=== PATIENT | female | born 1955 | race Caucasian/White ===

== ENCOUNTER 2020-06-04 11:49 | Outpatient (REF) | payer MEDICARE, SELFPAY ==
[2020-06-04 13:00] LABS: Alanine Aminotransferase 12 U/L (0-31); Alkaline Phosphatase 75 U/L (39-117); Anion Gap 11 (12-20); Aspartate Amino Transferase 15 U/L (5-31); Bilirubin Total 0.6 mg/dL (0.0-1.0); Blood Urea Nitrogen 13 mg/dL (9-16); Calcium 8.6 mg/dL (8.4-10.2); Carbon Dioxide 27 mmol/L (22-29); Chloride 106 mmol/L (96-108); Cholesterol 199 mg/dL; Estimated Glomerular Filt Rate > 60; Glucose Fasting 90 mg/dL (60-99); HDL Cholesterol 61 mg/dL; LDL Cholesterol Calculated 123 mg/dl; Potassium 3.8 mmol/l (3.3-5.1); Sodium 140 mmol/L (135-145); Total Protein 6.6 g/dL (6.5-8.0); Triglycerides 78 mg/dL
== END 2020-06-04 11:50 | disposition home or self-care (01) ==
LOC: HO.LAB 11:49
PROVIDERS: Visit Provider Internal Medicine
DX: E11.9 Type 2 diabetes mellitus without complications (principal)
CPT/HCPCS: 80053; 80061

== ENCOUNTER 2021-01-21 14:58 | Outpatient (REF) | payer MEDICARE, SELFPAY ==
--- NOTE | ~2021-01-21 | MM_ITS ---
EXAMINATION: MM SCREENING DIGITAL BREAST TOMOSYNTHESIS, BILATERAL CLINICAL INFORMATION: Screening. Asymptomatic. The lifetime risk of breast cancer based on the Tyrer-Cuzick Model is 3%. COMPARISON: Mammography: 08/16/2019, 08/10/2018, 09/12/2014 TECHNIQUE: Digital breast tomosynthesis is performed in both the craniocaudal and mediolateral oblique views along with computer-aided detection (CAD). Synthesized 2D images are generated from the tomosynthesis. FINDINGS: There are scattered areas of fibroglandular density (ACR BI-RADS breast composition Category b). Breast tissue composition borders on predominantly fatty. There are no significant masses, abnormal calcifications, or other abnormalities. There is no developing density. The axilla and skin contours are unremarkable. No significant changes. MM/MM tomosynthesis screening BI IMPRESSION: No mammographic evidence of malignancy. ASSESSMENT: BI-RADS 1: Negative RECOMMENDATION: Routine annual mammography screening. This patient's information was entered into a reminder system with a target due date for their next mammogram.
== END 2021-01-21 14:59 | disposition home or self-care (01) ==
LOC: HO.MAMMO 14:58
PROVIDERS: PCP Internal Medicine; Visit Provider Internal Medicine
DX: Z12.31 Encounter for screening mammogram for malignant neoplasm of breast (principal)
CPT/HCPCS: 77063; 77067

== ENCOUNTER 2021-01-27 10:45 | Outpatient (REF) | payer MEDICARE, SELFPAY | END 2021-01-27 10:46 | disposition home or self-care (01) | LOC: HO.LAB 10:45 | PROVIDERS: Visit Provider Internal Medicine | DX: Z20.822 Contact with and (suspected) exposure to COVID-19 (principal) | CPT/HCPCS: C9803; U0003; U0005 ==

== ENCOUNTER 2021-06-26 10:26 | Outpatient (REF) | payer MEDICARE, SELFPAY ==
[2021-06-26 10:56] LABS: COVID-19 Test Negative (Negative)
== END 2021-06-26 10:27 | disposition home or self-care (01) ==
LOC: HO.LAB 10:26
PROVIDERS: Visit Provider Internal Medicine
DX: Z20.822 Contact with and (suspected) exposure to COVID-19 (principal)
CPT/HCPCS: 36415; 87635; C9803

== ENCOUNTER 2021-07-02 11:57 | Outpatient (REF) | payer MEDICARE, SELFPAY | END 2021-07-02 11:58 | disposition home or self-care (01) | LOC: HO.LAB 11:57 | PROVIDERS: Visit Provider Internal Medicine | DX: Z20.822 Contact with and (suspected) exposure to COVID-19 (principal) | CPT/HCPCS: C9803; U0003; U0005 ==

== ENCOUNTER 2021-12-26 10:09 | Outpatient (REF) | payer MEDICARE, SELFPAY ==
--- NOTE | ~2021-12-26 | XR_ITS ---
EXAMINATION: XR SHOULDER, LEFT CLINICAL INFORMATION: Pain COMPARISON: None TECHNIQUE: AP external rotation, Grashey, scapular Y, and axillary views of the left shoulder. FINDINGS: The glenohumeral and AC joint space is maintained normal. There is a lateral acromial enthesophyte. No soft tissue calcification or swelling seen. No acute fracture, lytic or sclerotic process seen. XR/XR shoulder LT min 2V IMPRESSION: Minimal lateral acromial enthesophyte. Otherwise no acute fracture, dislocation or soft tissue calcification.
[2021-12-26 10:25] LABS: MANUAL DIFF FLAG NO
[2021-12-26 12:16] LABS: Basophils Absolute Auto 0.1 X10*3/uL (0.0-0.2); Basophils Percent Auto 0.9 % (0-2); Eosinophils Absolute Auto 0.1 X10*3/uL (0.0-0.4); Eosinophils Percent Auto 2.5 % (0-4); Hematocrit 38.8 % (37.0-47.0); Hemoglobin 13.1 g/dl (12.0-16.0); Imm Gran Abs Auto 0.02 X10*3/uL (0.00-0.03); Imm Gran Pct Auto 0.4 % (0.0-0.4); Lymphocytes Absolute Auto 1.7 X10*3/uL (1.2-4.9); Lymphocytes Percent Auto 29.9 % (20-40); Mean Corpuscular HGB Conc 33.8 g/dl (31.0-35.0); Mean Corpuscular Hemoglobin 29.5 pg (27.0-33.0); Mean Corpuscular Volume 87.4 fL (80.0-98.0); Mean Platelet Volume 10.4 fL (9.4-12.3); Monocytes Absolute Auto 0.5 X10*3/uL (0.1-1.2); Monocytes Percent Auto 8.2 % (2-11); Neutrophils Absolute Auto 3.2 x10*3/uL (2.0-8.3); Neutrophils Percent Auto 58.1 % (45-73); Platelet Count 212 X10*3/uL (160-400); Red Blood Count 4.44 X10*6/uL (4.20-5.50); Red Cell Distribution Width 11.9 % (11.0-16.0); White Blood Count 5.5 X10*3/uL (4.8-10.8)
[2021-12-26 12:58] LABS: Alanine Aminotransferase 11 U/L (0-31); Albumin Level 4.1 g/dL (3.5-5.0); Alkaline Phosphatase 72 U/L (39-117); Anion Gap 11 (12-20); Aspartate Amino Transferase 16 U/L (5-31); Bilirubin Total 0.7 mg/dL (0.0-1.0); Blood Urea Nitrogen 13 mg/dL (9-16); Calcium 8.8 mg/dL (8.4-10.2); Carbon Dioxide 25 mmol/L (22-29); Chloride 107 mmol/L (96-108); Cholesterol 207 mg/dL; Estimated Glomerular Filt Rate > 60; Glucose Fasting 85 mg/dL (60-99); HDL Cholesterol 61 mg/dL; LDL Cholesterol Calculated 135 mg/dl; Sodium 139 mmol/L (135-145); Total Protein 6.7 g/dL (6.5-8.0); Triglycerides 59 mg/dL
[2021-12-26 13:07] LABS: Thyroid Stimulating Hormone 0.61 uIU/mL (0.32-4.0)
== END 2021-12-26 10:10 | disposition home or self-care (01) ==
LOC: HO.LAB 10:09
PROVIDERS: PCP Internal Medicine; Visit Provider Internal Medicine
DX: Z13.0 Encounter for screening for diseases of the blood and blood-forming organs and certain disorders involving the immune mechanism (principal); M25.512 Pain in left shoulder; I10 Essential (primary) hypertension; E78.5 Hyperlipidemia, unspecified; E03.9 Hypothyroidism, unspecified
CPT/HCPCS: 36415; 73030; 80053; 80061; 84443; 85025

== ENCOUNTER → 2022-02-27 07:47 | Outpatient (BNVA) | payer MEDICARE, SELFPAY | PROVIDERS: PCP Internal Medicine; Visit Provider Physician Assistant | DX: M75.52 Bursitis of left shoulder (principal) | CPT/HCPCS: 20610; 99202; J1040 ==

== ENCOUNTER 2022-05-22 09:52 | Outpatient (REF) | payer MEDICARE, SELFPAY ==
[2022-05-22 10:05] LABS: MANUAL DIFF FLAG NO
[2022-05-22 10:29] LABS: Basophils Absolute Auto 0.1 X10*3/uL (0.0-0.2); Basophils Percent Auto 1.1 % (0-2); Eosinophils Absolute Auto 0.1 X10*3/uL (0.0-0.4); Eosinophils Percent Auto 2.8 % (0-4); Hematocrit 39.8 % (37.0-47.0); Hemoglobin 13.1 g/dl (12.0-16.0); Imm Gran Abs Auto 0.01 X10*3/uL (0.00-0.03); Imm Gran Pct Auto 0.2 % (0.0-0.4); Lymphocytes Absolute Auto 1.5 X10*3/uL (1.2-4.9); Lymphocytes Percent Auto 30.8 % (20-40); Mean Corpuscular HGB Conc 32.9 g/dl (31.0-35.0); Mean Corpuscular Volume 88.2 fL (80.0-98.0); Mean Platelet Volume 9.8 fL (9.4-12.3); Monocytes Absolute Auto 0.5 X10*3/uL (0.1-1.2); Monocytes Percent Auto 9.6 % (2-11); Neutrophils Absolute Auto 2.6 x10*3/uL (2.0-8.3); Neutrophils Percent Auto 55.5 % (45-73); Platelet Count 184 X10*3/uL (160-400); Red Blood Count 4.51 X10*6/uL (4.20-5.50); Red Cell Distribution Width 11.9 % (11.0-16.0); White Blood Count 4.7 X10*3/uL (4.8-10.8)
[2022-05-22 11:07] LABS: Alanine Aminotransferase 16 U/L (0-31); Albumin Level 4.2 g/dL (3.5-5.0); Alkaline Phosphatase 72 U/L (39-117); Anion Gap 15 (12-20); Aspartate Amino Transferase 20 U/L (5-31); Bilirubin Total 0.8 mg/dL (0.0-1.0); Blood Urea Nitrogen 9 mg/dL (9-16); Calcium 8.9 mg/dL (8.4-10.2); Carbon Dioxide 25 mmol/L (22-29); Chloride 106 mmol/L (96-108); Cholesterol 205 mg/dL; Estimated Glomerular Filt Rate > 60; Glucose Fasting 89 mg/dL (60-99); HDL Cholesterol 61 mg/dL; LDL Cholesterol Calculated 130 mg/dl; Potassium 3.8 mmol/L (3.3-5.1); Sodium 142 mmol/L (135-145); Total Protein 6.6 g/dL (6.5-8.0); Triglycerides 71 mg/dL
[2022-05-22 11:15] LABS: Thyroid Stimulating Hormone 0.63 uIU/mL (0.32-4.0)
== END 2022-05-22 09:53 | disposition home or self-care (01) ==
LOC: HO.LAB 09:52
PROVIDERS: PCP Internal Medicine; Visit Provider Internal Medicine
DX: Z00.00 Encounter for general adult medical examination without abnormal findings (principal); Z13.0 Encounter for screening for diseases of the blood and blood-forming organs and certain disorders involving the immune mechanism
CPT/HCPCS: 36415; 80053; 80061; 84443; 85025

== ENCOUNTER → 2022-06-12 09:15 | Outpatient (BNVA) | payer MEDICARE, SELFPAY | PROVIDERS: PCP Internal Medicine; Visit Provider Physician Assistant | DX: M75.52 Bursitis of left shoulder (principal); M25.512 Pain in left shoulder | CPT/HCPCS: 20610; 99212; J1040 ==

== ENCOUNTER → 2022-09-16 13:30 | Outpatient (BNVA) | payer MEDICARE, SELFPAY | PROVIDERS: PCP Internal Medicine; Visit Provider Physician Assistant | DX: M75.52 Bursitis of left shoulder (principal) | CPT/HCPCS: 20610; 99212; J1040 ==

== ENCOUNTER 2023-04-02 09:17 | Outpatient (AMB) | payer MEDICARE, SELFPAY ==
[2023-04-02 09:20] VITALS: BP 138/70; PULSE 83; O2SAT 98; BMI 31.9
--- NOTE | 2023-04-02 09:20 | A.OFFPC_ITS ---
Vital Signs 04/02/23 09:20 Height 5 ft 1 in Weight 169 lb BMI 31.9 BP 138/70 Blood Pressure Location Lt brachial Position Sitting Pulse 83 Pulse Source Pulse Oximeter Pulse Oximetry (%) 98 Oxygen Delivery Method Room Air Intake Visit Reasons: Annual Physical - due for mammo Informatics Application Analyst Required: No Chief Dietitian: Present Accompanied by: Daughter Allergies codeine [CODEINE] Allergy (Unknown, Verified 04/02/23 09:20) TACHYCARDIA Medication List - Last Reconciled 04/02/23 by Sean Fish MD azithromycin take 500 mg today (day 1), then 250 mg for 4 days (days 2-5) PO estradiol 0.01%(0.1mg/gram) 1 g vaginal BEDTIME fluoxetine 10 mg PO DAILY hydroxyzine pamoate 25 mg PO QID PRN ibuprofen 800 mg PO Q8H PRN 30 days levothyroxine 75 mcg PO DAILY mirabegron ER (Myrbetriq) 25 mg PO DAILY oxycodone 5 mg PO Q4H PRN trazodone 50 mg PO BEDTIME PRN valacyclovir 1,000 mg PO BID Tobacco use date assessed: 07/24/22 Fall risk assessment: No Falls in past year Last assessed Fall Risk: 04/02/23 Dental Screening Dental Screen Date: 04/02/23 Did you have a dental visit in the last 12 months?: No Did you have a dental problem in the last 6 months where you did not have access to dental care?: No Was dental information given to patient?: Patient has dentist HPI Annual Physical - due for mammo HPI Details hypothyroidism on rx; doing ell; compliant [facility] Surgical History History of hysterectomy History of bunionectomy History of appendectomy History of cholecystectomy Family History Father Heart disease Mother No problems noted. 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 1. Little interest or pleasure in doing things: not at all 2. Feeling down, depressed, or hopeless: not at all 3. Trouble falling or staying asleep, or sleeping too much: not at all 4. Feeling tired or having little energy: not at all 5. Poor appetite or overeating: not at all 6. Feeling bad about yourself - or that you are a failure or have let yourself or your family down: not at all 7. Trouble concentrating on things, such as reading the newspaper or watching television: not at all 8. Moving or speaking so slowly that other people could have noticed. Or the opposite - being so fidgety or restless that you have been moving around a lot more than usual: not at all 9. Thoughts that you would be better off or of hurting yourself in some way: not at all Total score: 0 Depression Screening Interpretation: Negative 05360 - PHQ-9 Billing: Yes Source: Developed by Drs. Efra Muro, Gabby Montano, Ciaran Rodriguez and colleagues, with an educational petros from [employer]. Thrive Questionnaire Date Thrive assessed: 04/02/23 I am a: Patient What is your living situation today?: I have a steady place to live Within the past 12 months, did the food you bought not last and you didn't have the money to get more?: Never true Within the past 12 months, did you worry whether your food would run out before you got money to buy more?: Never true Do you have trouble paying for medicines?: No Do you have trouble getting transportation to medical appointments?: No Do you have trouble paying your heating and electricity bill?: No Do you have trouble taking care of your child, family member or friend?: No Do you have trouble with day-to-day activities such as bathing, preparing meals, shopping, managing finances, etc.?: No Are you currently unemployed and looking for a job?: No Are you interested in more education?: No Please select the resources that you would like help with: None AUDIT C Alcohol Use Questionnaire (AUDIT-C) 1. How often do you have a drink containing alcohol?: Never Total Score: 0 Score Reviewed/Action Taken: Yes JEFF-7 AMB Questionnaire JEFF-7 Date JEFF - 7 assessed: 04/02/23 Feeling nervous, anxious, or on edge: 0 = Not at all Not being able to stop or control worryin = Not at all Worrying too much about different things: 0 = Not at all Trouble relaxin = Not at all Being so restless that it is hard to sit still: 0 = Not at all Becoming easily annoyed or irritable: 0 = Not at all Feeling afraid as if something awful might happen: 0 = Not at all Total JEFF-7 score (0-4 normal; 5-9 mild; 10-14 moderate; 15-21 severe): 0 Source: Developed by Drs. Efra Muro, Gabby Montano, Ciaran Rodriguez and colleagues, with an educational petros from [employer]. JEFF-7 Assessment Billing JEFF-7 Assessment Tool: JEFF-7 Assessment 83250 Review of Systems Const Denies chills, Denies fatigue, Denies headache(s) and Denies weight loss Eyes Denies change in vision, Denies diplopia and Denies eye pain ENT Denies vertigo, Denies dizziness, Denies headache(s) and Denies nasal discharge Card Denies chest pain, Denies rapid heart rate and Denies dyspnea on exertion Resp Denies chest congestion, Denies cough, Denies pain with cough and Denies dyspnea on exertion GI Denies abdominal pain, Denies hematochezia and Denies change in bowel habits Musc Denies myalgias, Denies arthralgias and Denies joint swelling Skin/Breast Denies lesions and Denies unusual bruising Neuro Denies vertigo, Denies dizziness, Denies headache(s) and Denies focal weakness Endo Denies fatigue Physical exam (Primary Care) Vital Signs: Last Vital Signs Pulse 83 04/02/23 09:20 BP 138/70 04/02/23 09:20 Pulse Ox 98 04/02/23 09:20 Oxygen Delivery Method Room Air 04/02/23 09:20 BMI result Body Mass Index 31.9 obesity BMI Assessment/Plan discussion: High BMI High, discussed plan: lifestyle, weight reduction, dietary and physical activity Tobacco/Smoking Status: Tobacco use Status Tobacco use date assessed 07/24/22 04/02/23 09:25 Patient Tobacco Use Status Never used Tobacco 04/02/23 09:25 e-Cigarette/Vaping Use Never Used 04/02/23 09:25 PHQ-9: PHQ-9 Score PHQ-9: Total score 0 04/02/23 09:26 Depression Screening Interpretation: Negative Thrive Assessment: Date of Thrive Assessment Date Thrive assessed 04/02/23 04/02/23 09:25 Advance Care Planning discussion: On file, no changes Forms completed: Health Care Proxy Const General: cooperative, healthy appearing and no acute distress Orientation/consciousness: oriented to person, oriented to place and oriented to time HENMT Head: Yes normal to inspection, Yes normocephalic and Yes atraumatic Mouth: Normal oral and palatal mucosa present and tongue normal Throat: Yes posterior oropharynx normal and Yes uvula midline Eyes General: appearance normal, both eyes and all related structures Neck Neck: Yes normal visual inspection, Yes full ROM and Yes no lymphadenopathy Thyroid: Thyroid normal Carotids: normal carotid upstroke Chest Chest palpation & inspection: normal inspection of the chest Resp Effort & Inspection: normal respiratory effort and able to speak in complete sentences Auscultation: clear to auscultation bilaterally Cardio Jugular venous distension: no JVD Palpation: normal PMI Rate: regular rate Rhythm: regular rhythm Heart sounds: S1 normal heart sound present and S2 normal heart sound present GI Inspection: Yes normal to inspection Palpation (GI): Soft to palpation and No hepatosplenomegaly present Auscultation: normal bowel sounds General: Yes no CVA tenderness Back/Spine/Pelvis Back: no CVA tenderness Skin General skin exam: no rashes or lesions noted Neuro General: oriented to person, oriented to place and oriented to time Extrem General: Yes normal to inspection and Yes full ROM Assessment and Plan Assessment & Plan (1) Physical exam: Code(s): Z00.00 - Encounter for general adult medical examination without abnormal findings Plan: stable; do labs (2) Hypothyroidism: Code(s): E03.9 - Hypothyroidism, unspecified Plan: same rx (3) Obesity: Code(s): E66.9 - Obesity, unspecified Plan: as above Orders: Orders Lipid Panel Today E78.5 - Hyperlipidemia, unspecified Thyroid Stimulating Hormone Today E03.9 - Hypothyroidism, unspecified Comprehensive [place]. Panel Fast Today N28.9 - Disorder of kidney and ureter, unspecified Complete Blood Count Auto Diff Today D64.9 - Anemia, unspecified MM tomosynthesis screen imp BI Today Z12.31 - Encounter for screening mammogram for malignant neoplasm of breast Coding Level of Care Code Est Pt Prev Care >65y(72739) Diagnoses Physical exam Z00.00 Hypothyroidism E03.9 Obesity E66.9 Additional Codes JEFF-7 Assessment Billing - JEFF-7 Assessment Tool: JEFF-7 Assessment 05114 ([id number]) Vital Signs *Quality* - Advance Care Planning discussion: On file, no changes ([id number])
== END 2023-04-02 11:50 | disposition home or self-care (01) ==
PROVIDERS: Visit Provider Internal Medicine
DX: Z00.00 Encounter for general adult medical examination without abnormal findings (principal); E03.9 Hypothyroidism, unspecified; E66.9 Obesity, unspecified; Z68.31 Body mass index [BMI] 31.0-31.9, adult
CPT/HCPCS: 1123F; 99397

== ENCOUNTER 2023-04-09 10:16 | Outpatient (REF) | payer MEDICARE, SELFPAY ==
[2023-04-09 10:40] LABS: MANUAL DIFF FLAG NO
[2023-04-09 11:06] LABS: Basophils Percent Auto 0.6 % (0-2); Eosinophils Absolute Auto 0.1 X10*3/uL (0.0-0.4); Eosinophils Percent Auto 2.2 % (0-4); Hematocrit 40.9 % (37.0-47.0); Hemoglobin 13.1 g/dl (12.0-16.0); Imm Gran Abs Auto 0.02 X10*3/uL (0.00-0.03); Imm Gran Pct Auto 0.3 % (0.0-0.4); Lymphocytes Absolute Auto 1.7 X10*3/uL (1.2-4.9); Lymphocytes Percent Auto 27.1 % (20-40); Mean Corpuscular Hemoglobin 28.6 pg (27.0-33.0); Mean Corpuscular Volume 89.3 fL (80.0-98.0); Mean Platelet Volume 10.2 fL (9.4-12.3); Monocytes Absolute Auto 0.5 X10*3/uL (0.1-1.2); Monocytes Percent Auto 7.6 % (2-11); Neutrophils Absolute Auto 3.9 x10*3/uL (2.0-8.3); Neutrophils Percent Auto 62.2 % (45-73); Platelet Count 211 X10*3/uL (160-400); Red Blood Count 4.58 X10*6/uL (4.20-5.50); Red Cell Distribution Width 12.4 % (11.0-16.0); White Blood Count 6.3 X10*3/uL (4.8-10.8)
[2023-04-09 11:51] LABS: Alanine Aminotransferase 12 U/L (0-31); Albumin Level 4.1 g/dL (3.5-5.0); Alkaline Phosphatase 71 U/L (39-117); Anion Gap 16 (12-20); Aspartate Amino Transferase 17 U/L (5-31); Bilirubin Total 0.3 mg/dL (0.0-1.0); Blood Urea Nitrogen 10 mg/dL (9-16); Carbon Dioxide 23 mmol/L (22-29); Chloride 108 mmol/L (96-108); Cholesterol 210 mg/dL (<200); Estimated Glomerular Filt Rate > 60; Glucose Fasting 80 mg/dL (60-99); HDL Cholesterol 58 mg/dL (>40); LDL Cholesterol Calculated 128 mg/dL (<100); Potassium 3.5 mmol/L (3.3-5.1); Sodium 143 mmol/L (135-145); Total Protein 6.9 g/dL (6.5-8.0); Triglycerides 123 mg/dL (<150)
[2023-04-09 11:56] LABS: Thyroid Stimulating Hormone 0.42 uIU/mL (0.32-4.0)
== END 2023-04-09 10:17 | disposition home or self-care (01) ==
LOC: HO.LAB 10:16
PROVIDERS: PCP Family Medicine; Visit Provider Internal Medicine
DX: E03.9 Hypothyroidism, unspecified (principal); D64.9 Anemia, unspecified; N28.9 Disorder of kidney and ureter, unspecified; E78.5 Hyperlipidemia, unspecified
CPT/HCPCS: 36415; 80053; 80061; 84443; 85025

== ENCOUNTER 2023-04-23 10:15 | Outpatient (AMB) | payer MEDICARE, SELFPAY ==
[2023-04-23 10:17] VITALS: BP 152/88; PULSE 67; O2SAT 98; BMI 31.7
--- NOTE | 2023-04-23 10:17 | MHC.PC.OV ---
Vital Signs 04/23/23 10:17 Height 5 ft 1 in Weight 168 lb BMI 31.7 BP 152/88 H Blood Pressure Location Lt brachial Position Sitting Pulse 67 Pulse Source Pulse Oximeter Pulse Oximetry (%) 98 Oxygen Delivery Method Room Air Intake Visit Reasons: Elevated BPs Allergies codeine [CODEINE] Allergy (Unknown, Verified 04/23/23 10:17) TACHYCARDIA Medication List - Last Reconciled 04/23/23 by Sean Fish MD azithromycin take 500 mg today (day 1), then 250 mg for 4 days (days 2-5) PO fluoxetine 10 mg PO DAILY hydroxyzine pamoate 25 mg PO QID PRN ibuprofen 800 mg PO Q8H PRN 30 days levothyroxine 75 mcg PO DAILY trazodone 50 mg PO BEDTIME PRN Tobacco use date assessed: 07/24/22 Fall risk assessment: No Falls in past year Last assessed Fall Risk: 04/23/23 Dental Screening Dental Screen Date: 04/23/23 Did you have a dental visit in the last 12 months?: No Did you have a dental problem in the last 6 months where you did not have access to dental care?: No Was dental information given to patient?: Patient has dentist HPI Elevated BPs HPI Details BP has been elevated for a few days; has dizziness PFSH Surgical History History of hysterectomy History of bunionectomy History of appendectomy History of cholecystectomy Family History Father Heart disease Mother No problems noted. 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 1. Little interest or pleasure in doing things: not at all 2. Feeling down, depressed, or hopeless: not at all 3. Trouble falling or staying asleep, or sleeping too much: not at all 4. Feeling tired or having little energy: not at all 5. Poor appetite or overeating: not at all 6. Feeling bad about yourself - or that you are a failure or have let yourself or your family down: not at all 7. Trouble concentrating on things, such as reading the newspaper or watching television: not at all 8. Moving or speaking so slowly that other people could have noticed. Or the opposite - being so fidgety or restless that you have been moving around a lot more than usual: not at all 9. Thoughts that you would be better off or of hurting yourself in some way: not at all Total score: 0 Depression Screening Interpretation: Negative Depression Screening Done: Yes 46214 - PHQ-9 Billing: Yes Source: Developed by Drs. Efra Muro, Gabby Montano, Ciaran Rodriguez and colleagues, with an educational petros from [employer]. Thrive Questionnaire Date Thrive assessed: 04/02/23 AUDIT C Alcohol Use Questionnaire (AUDIT-C) 1. How often do you have a drink containing alcohol?: Never Total Score: 0 Score Reviewed/Action Taken: Yes JEFF-7 AMB Questionnaire JEFF-7 Date JEFF - 7 assessed: 04/02/23 Source: Developed by Drs. Efra Muro, Gabby Montano, Ciaran Rodriguez and colleagues, with an educational petros from [employer]. Review of Systems Const Denies chills, Denies headache(s) and Denies weight loss ENT Denies headache(s) Card Denies chest pain, Denies syncope, Denies irregular heart rhythm and Denies dyspnea Resp Denies chest congestion, Denies cough and Denies dyspnea GI Denies abdominal pain, Denies change in stool character, Denies nausea and Denies vomiting Musc Denies deformity and Denies joint swelling Neuro Denies syncope and Denies headache(s) Physical exam (Primary Care) Vital Signs: Last Vital Signs Pulse 67 04/23/23 10:17 BP 152/88 H 04/23/23 10:17 Pulse Ox 98 04/23/23 10:17 Oxygen Delivery Method Room Air 04/23/23 10:17 BMI result Body Mass Index 31.7 Tobacco/Smoking Status: Tobacco use Status Tobacco use date assessed 07/24/22 04/23/23 10:17 Patient Tobacco Use Status Never used Tobacco 04/23/23 10:17 e-Cigarette/Vaping Use Never Used 04/23/23 10:17 PHQ-9: PHQ-9 Score PHQ-9: Total score 0 04/23/23 10:20 Depression Screening Interpretation: Negative Thrive Assessment: Date of Thrive Assessment Date Thrive assessed 04/02/23 04/23/23 10:17 Const General: cooperative, comfortable, no acute distress and alert Neck Neck: Yes no lymphadenopathy Thyroid: Thyroid normal Resp Effort & Inspection: normal respiratory effort Auscultation: clear to auscultation bilaterally Percussion: percussion normal Cardio Jugular venous distension: no JVD Palpation: normal PMI Rate: regular rate Rhythm: regular rhythm Heart sounds: S1 normal heart sound present and S2 normal heart sound present GI Inspection: Yes normal to inspection Palpation (GI): No hepatosplenomegaly present Skin General skin exam: no rashes or lesions noted Extrem General: Yes no clubbing, cyanosis or edema Assessment and Plan Assessment & Plan (1) Hypertension: Code(s): I10 - Essential (primary) hypertension Plan: labs and ekg; begin rx Orders: Orders ECG 12 lead EKG Today R42 - Dizziness and giddiness Medications: New hydrochlorothiazide 12.5 mg (1/2 x 25 mg) PO DAILY 90 tabs 8RF Coding Level of Care Code Est Pt Level 3 (55777) Diagnoses Hypertension I10
== END 2023-04-23 11:38 | disposition home or self-care (01) ==
PROVIDERS: PCP Internal Medicine; Visit Provider Internal Medicine
DX: I10 Essential (primary) hypertension (principal)
CPT/HCPCS: 99213

== ENCOUNTER → 2023-04-23 10:39 | Outpatient (REF) | payer MEDICARE, SELFPAY ==
--- NOTE | 2023-04-23 10:49 | ECG_ITS ---
Test Reason : dizziness Blood Pressure : / mmHG Vent. Rate : 067 BPM Atrial Rate : 067 BPM P-R Int : 184 ms QRS Dur : 080 ms QT Int : 418 ms P-R-T Axes : 068 006 027 degrees QTc Int : 441 ms Normal sinus rhythm Nonspecific T wave abnormality Borderline ECG When compared with ECG of 22-DEC-2016 20:20, T wave amplitude has decreased in Lateral leads Referred By: Sean Fish Electronically Signed By:LIEN ZACARIAS MD
== END ==
LOC: HO.CARD 10:39
PROVIDERS: Visit Provider Internal Medicine
DX: R42 Dizziness and giddiness (principal)
CPT/HCPCS: 93005

== ENCOUNTER 2023-04-24 15:50 | Emergency (ER) | payer MEDICARE, SELFPAY ==
[2023-04-24 16:45] VITALS: BP 147/96; PULSE 75; RESP 16; TEMP 36.8; O2SAT 96; BMI 32.0
--- NOTE | 2023-04-24 16:45 | ED_ITS ---
HPI - Female Genitourinary General Chief complaint: Vaginal Bleeding Stated complaint: Vaginal bleeding Time Seen by Provider: 04/24/23 19:49 Source: patient, family (patient's daughter) and automotive [employer] interpreter Mode of arrival: ambulatory Limitations: language barrier History of Present Illness HPI Narrative: Patient is a 67 year old assigned female at with a history of hysterectomy and hypothyroidism presenting to the emergency department today with possible vaginal bleeding. Patient states that she went to the bathroom and saw blood in the toilet. Patient states that she is unsure where it came from but it was bright red blood. Patient denies any dizziness, lightheadedness, abdominal pain, nausea, vomiting, fever, chills, blurry vision, double vision, loss of vision, chest pain, difficulty breathing, shortness of breath, back pain, night sweats, pain with urination, increased urinary frequency, increased urinary urgency, syncope or a near syncopal episode, recent trauma or falls, bowel incontinence, bladder incontinence, bowel retention, bladder retention, or any other complaints at this time. Related Data Home Medications Medication Instructions Recorded Confirmed trazodone 50 mg tablet 50 mg PO BEDTIME PRN 05/31/20 04/23/23 Previous Rx's Medication Instructions Recorded hydroxyzine pamoate 25 mg capsule 25 mg PO QID PRN itching #60 caps 08/03/22 levothyroxine 75 mcg tablet 75 mcg PO DAILY #90 tabs 08/12/22 azithromycin 250 mg tablet See Rx Instructions PO .COMPLEX #6 09/17/22 tabs ibuprofen 800 mg tablet 800 mg PO Q8H PRN pain 30 days #90 09/17/22 tabs fluoxetine 10 mg capsule 10 mg PO DAILY #90 caps 04/12/23 hydrochlorothiazide 25 mg tablet 12.5 mg (1/2 x 25 mg) PO DAILY #90 04/23/23 tabs cefdinir 300 mg capsule 300 mg PO BID 7 days #14 caps 04/24/23 Allergies Allergy/AdvReac Type Severity Reaction Status Date / Time codeine [CODEINE] Allergy Unknown TACHYCARDIA Verified 04/23/23 10:17 Review of Systems 2 Constitutional: Constitutional: Reports no additional constitutional complaints, Denies chills, Denies fever(s) and Denies night sweats Eyes: Eyes: Reports no additional eye complaints, Denies blurry vision, Denies change in vision, Denies diplopia, Denies eye discharge, Denies loss of vision and Denies eye pain ENT: Denies dizziness Cardiovascular: Cardiovascular: Reports no additional cardiovascular complaints, Denies chest pain, Denies lightheadedness, Denies Loss of Consciousness and Denies dyspnea Respiratory: Respiratory: Reports no additional respiratory complaints and Denies dyspnea Gastrointestinal: Gastrointestinal: Reports no additional gastrointestinal complaints, Denies abdominal pain, Denies melena, Denies hematochezia, Denies change in bowel habits and Denies change in stool character Genitourinary: Genitourinary: Denies urinary frequency, Denies dysuria, Denies urinary incontinence, Denies urinary hesitancy and Denies urinary urgency C omments: possible vaginal bleeding Musculoskeletal: Musculoskeletal: Reports no additional musculoskeletal complaints, Denies numbness and Denies tingling Neurologic: Denies dizziness, Denies loss of vision, Denies numbness and Denies tingling Psychiatric: Psychiatric: Reports no additional psychiatric complaints Endocrine: Endocrine: Reports no additional endocrine complaints Hematologic/Lymphatic: Hematologic/Lymphatic: Reports no additional hematologic/lymphatic complaints Allergic/Immunologic: Allergic/Immunologic: Reports no additional allergic/immunologic complaints [facility] Past Medical History Attestation statement: The following information was validated with the patient. (all information was validated with the patient's daughter) Source: old records reviewed, obtained from family (patient's daughter provided additional history and confirmed the history provided by the patient.) and nursing notes reviewed Medical History (Updated 04/24/23 @ 23:52 by KATIE Pisano) Obesity Physical exam Preop exam for internal medicine Surgical History History of hysterectomy History of bunionectomy History of appendectomy History of cholecystectomy Family History Family History Father Heart disease Mother No problems noted. 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 Cognitive needs: No Hearing needs: No Vision needs: Yes (glasses) Physical Exam 2 Vital Signs: Vital Signs: Last Vital Signs Temp 99.3 F 04/24/23 20:33 Pulse 91 04/24/23 20:33 Resp 17 04/24/23 20:33 BP 182/86 H 04/24/23 20:33 Pulse Ox 96 04/24/23 20:33 O2 Del Method Room Air 04/24/23 20:33 BMI result Body Mass Index 32.0 Const: General: cooperative, no acute distress, alert and awake Nutritional Appearance: well nourished Orientation/consciousness: patient oriented x3 Limitations: no limitations HEENT: Head: Yes normal to inspection and Yes atraumatic Ears: hearing grossly normal bilaterally and external ears normal General nose exam: Normal external nose present, no nasal discharge noted and no epistaxis Face and sinus: Yes normal facial exam, No abrasion and No laceration Mouth: Normal oral and palatal mucosa present, no drooling and no muffled voice Eyes: General: appearance normal, both eyes and all related structures P eriorbital: periorbital findings normal Eyelids: Yes eyelids normal C onjunctivae: conjunctivae normal Pupils: Equal, round and reactive pupils present EOM: EOMs intact bilaterally Neck: Neck: Yes normal visual inspection, Yes full ROM and Yes no lymphadenopathy Chest: Chest palpation & inspection: normal inspection of the chest Resp: Effort & Inspection: normal respiratory effort and able to speak in complete sentences GI: Inspection: Yes normal to inspection Rectal Exam - Female: External hemorrhoid(s) present : External Female Exam: normal external appearance Speculum Exam - Vagina: normal appearance of the vagina Speculum Exam - Cervix: Cervix absent Neuro: General: patient oriented x3 and moves all extremities Cranial nerves: Yes Equal, round and reactive pupils present Cognition (Neuro): n ormal cognition Motor exam (neuro): 5/5 motor strength present throughout Sensory Exam: Normal double simultaneous stimulation for sensation C oordination: [id number]-[id number] test normal Extrem: General: Yes normal to inspection, Yes full ROM and Yes capillary refill normal Psych: Appearance: grossly normal Mental Status: mental status grossly normal Affect: normal affect Attitude: cooperative Thought process: N ormal thought process present Thought content: Normal thought content present Insight: Good insight present (Psych) Course Course Course Narrative: This is a rapid medical exam. Deferred additional HPI, ROS, PE to primary provider. 67 yo female here with complaints of painless vaginal bleeding today. No history of same. Seen at PCP yesterday for HTN and started on hctz. Will need labs, pelvic US. Is post menopausal. Has not seen [employer] [facility] > 10 yrs. Has never had abnormal PAP smear. VSS Informed by [facility] patient is s/p hysterectomy, US cancelled Medical Decision Making Medical Decision Making MDM Narrative: Patient is a 67 year old assigned female at with a history of hysterectomy and hypothyroidism presenting to the emergency department today with bright red blood in the toilet after use. Patient's physical exam showed a normal vaginal exam with a surgically absent cervix and external, bleeding, hemorrhoid. Patient's blood work was unremarkable. Patient's urine showed evidence of a urinary tract infection. Patient's blood in the toilet is likely from her urinary tract infection and bleeding external hemorrhoid. I explained my physical exam findings as well as all test results to the patient and the patient's daughter. I answered all questions asked by the patient and the patient's daughter. I stressed the importance of the patient taking her medication as prescribed. I stressed the importance of the patient following up with her primary care provider. I stressed the importance of the patient returning to the emergency department immediately if her symptoms were to worsen or if she were to develop any dizziness, shortness of breath, difficulty breathing, chest pain, blurry vision, loss of vision, nausea, vomiting, abdominal pain, fever, chills, back pain, or any other complaints. Patient and the patient's daughter verbalized agreement and understanding with this treatment plan and discharge. Differential Diagnosis Differential Diagnoses: The differential diagnosis associated with the presentation includes UTI Vaginal bleeding Hemorrhoid Admission/Observation Consideration of admission/observation: Escalation of care including admission/observation considered Patient would have been admitted to the hospital had her work up had any findings where hospital admission was appropriate and her clinical presentation warranted hospital admission. Lab Data [facility] Lab Attestation statement: I reviewed the patient's lab results. My interpretation of these results are in the [facility] rationale portion of this note. 04/24/23 17:05 04/24/23 17:05 Labs: Lab Results 04/24/23 04/24/23 Range/Units 17:05 20:23 WBC 6.5 (4.8-10.8) X10*3/uL RBC 4.91 (4.20-5.50) X10*6/uL Hgb 14.1 (12.0-16.0) g/dl Hct 42.6 (37.0-47.0) % MCV 86.8 (80.0-98.0) fL MCH 28.7 (27.0-33.0) pg MCHC 33.1 (31.0-35.0) g/dl RDW 11.9 (11.0-16.0) % Plt Count 196 (160-400) X10*3/uL MPV 9.7 (9.4-12.3) fL Immature Gran % (Auto) 0.2 (0.0-0.4) % Neut % (Auto) 59.1 (45-73) % Lymph % (Auto) 29.8 (20-40) % Spencer % (Auto) 8.5 (2-11) % Eos % (Auto) 1.8 (0-4) % Baso % (Auto) 0.6 (0-2) % Lymph # (Auto) 1.9 (1.2-4.9) X10*3/uL Spencer # (Auto) 0.6 (0.1-1.2) X10*3/uL Eos # (Auto) 0.1 (0.0-0.4) X10*3/uL Baso # (Auto) 0.0 (0.0-0.2) X10*3/uL Abs Immat Gran (auto) 0.01 (0.00-0.03) X10*3/uL Absolute Neuts (auto) 3.8 (2.0-8.3) x10*3/uL Absolute Nucleated RBC 0.000 (0.0-0.012) X10*3/uL Nucleated RBC % (auto) 0.0 (0.0-0.2) /100WBC PT 11.0 L (11.1-13.3) SEC INR 0.9 (0.9-1.1) Sodium 139 (135-145) mmol/L Potassium 4.0 (3.3-5.1) mmol/L Chloride 105 (96-108) mmol/L Carbon Dioxide 20 L (22-29) mmol/L Anion Gap 18 (12-20) BUN 11 (9-16) mg/dL Creatinine 0.90 (0.5-1.4) mg/dL Estim Creat Clear Calc 55.3 Estimated GFR > 60 Random Glucose 92 (60-115) mg/dL Calcium 9.7 D (8.4-10.2) mg/dL Total Bilirubin 0.4 (0.0-1.0) mg/dL Direct Bilirubin 0.1 (0.0-0.5) mg/dL AST 18 (5-31) U/L ALT 11 (0-31) U/L Alkaline Phosphatase 78 (39-117) U/L Total Protein 7.4 (6.5-8.0) g/dL Albumin 4.3 (3.5-5.0) g/dL Urine Color Yellow Urine Appearance Clear Urine pH 5.5 (5.0-9.0) Ur Specific [place] 1.010 (1.005-1.025) Urine Protein Negative (Neg-Trace) mg/dL Urine Glucose (UA) Negative (Negative) mg/dL Urine Ketones Negative (Negative) mg/dL Urine Blood Negative (Negative) Urine Nitrite Negative (Negative) Ur Leukocyte Esterase Moderate (2+) H (Negative) Urine RBC 0-2 (0-2) /HPF Urine WBC 21-50 H (0-5) /HPF Ur Squamous Epith Cells 0-2 (0-2) /HPF Urine Bacteria 4+ (None Seen) Hyaline Casts 0-2 (0-2) /LPF Independent Historian Clinical information obtained from an independent historian. History obtained from or confirmed by: Other (patient's daughter provided additional history and confirmed the history provided by the patient.) Prescription Management I considered prescription management with: Antibiotic (patient prescribed an antibiotic for her UTI) Discharge Plan Discharge Clinical Impression: Bleeding hemorrhoid, Urinary tract infection Patient Disposition: Home, Self-Care Instructions: Hemorrhoids (DC), Urinary Tract Infection in Women (DC) Additional Instructions: Follow up with your primary care provider. Return to the emergency department immediately if your symptoms worsen or if you develop any dizziness, shortness of breath, difficulty breathing, chest pain, blurry vision, loss of vision, nausea, vomiting, abdominal pain, fever, chills, back pain, or any other complaints. Prescriptions: New cefdinir 300 mg capsule 300 mg PO BID 7 Days Qty: 14 0RF No Action hydroxyzine pamoate 25 mg capsule 25 mg PO QID PRN (Reason: itching) Qty: 60 3RF levothyroxine 75 mcg tablet 75 mcg PO DAILY Qty: 90 8RF ibuprofen 800 mg tablet 800 mg PO Q8H PRN (Reason: pain) 30 Days Qty: 90 3RF azithromycin 250 mg tablet See Rx Instructions PO .COMPLEX Qty: 6 0RF Rx Instructions: take 500 mg today (day 1), then 250 mg for 4 days (days 2-5) PO fluoxetine 10 mg capsule 10 mg PO DAILY Qty: 90 8RF trazodone 50 mg tablet 50 mg PO BEDTIME PRN hydrochlorothiazide 25 mg tablet 12.5 mg PO DAILY Qty: 90 8RF Referrals: Sean Fish MD [Primary Care Provider] - Interventions: ED Discharge Assessment Last Done: 04/24/23 21:21 Discharge Date/Time: 04/24/23 21:22 Print Language: Georgian
[2023-04-24 17:08] LABS: MANUAL DIFF FLAG NO
[2023-04-24 17:15] LABS: Basophils Percent Auto 0.6 % (0-2); Eosinophils Absolute Auto 0.1 X10*3/uL (0.0-0.4); Eosinophils Percent Auto 1.8 % (0-4); Hematocrit 42.6 % (37.0-47.0); Hemoglobin 14.1 g/dl (12.0-16.0); Imm Gran Abs Auto 0.01 X10*3/uL (0.00-0.03); Imm Gran Pct Auto 0.2 % (0.0-0.4); Lymphocytes Absolute Auto 1.9 X10*3/uL (1.2-4.9); Lymphocytes Percent Auto 29.8 % (20-40); Mean Corpuscular HGB Conc 33.1 g/dl (31.0-35.0); Mean Corpuscular Hemoglobin 28.7 pg (27.0-33.0); Mean Corpuscular Volume 86.8 fL (80.0-98.0); Mean Platelet Volume 9.7 fL (9.4-12.3); Monocytes Absolute Auto 0.6 X10*3/uL (0.1-1.2); Monocytes Percent Auto 8.5 % (2-11); Neutrophils Absolute Auto 3.8 x10*3/uL (2.0-8.3); Neutrophils Percent Auto 59.1 % (45-73); Platelet Count 196 X10*3/uL (160-400); Red Blood Count 4.91 X10*6/uL (4.20-5.50); Red Cell Distribution Width 11.9 % (11.0-16.0); White Blood Count 6.5 X10*3/uL (4.8-10.8)
[2023-04-24 17:19] LABS: INTERNATIONAL NORM RATIO 0.9 (0.9-1.1)
[2023-04-24 17:28] LABS: Alanine Aminotransferase 11 U/L (0-31); Albumin Level 4.3 g/dL (3.5-5.0); Alkaline Phosphatase 78 U/L (39-117); Anion Gap 18 (12-20); Aspartate Amino Transferase 18 U/L (5-31); Bilirubin Direct 0.1 mg/dL (0.0-0.5); Bilirubin Total 0.4 mg/dL (0.0-1.0); Blood Urea Nitrogen 11 mg/dL (9-16); Calcium 9.7 mg/dL (8.4-10.2); Carbon Dioxide 20 mmol/L (22-29); Chloride 105 mmol/L (96-108); Creatinine Clr Calc Pharmacy 55.3; Estimated Glomerular Filt Rate > 60; Glucose Random 92 mg/dL (60-115); Sodium 139 mmol/L (135-145); Total Protein 7.4 g/dL (6.5-8.0)
[2023-04-24 20:32] LABS: Appearance Urine Clear; Color Urine Yellow; Glucose Urine UA Negative (Negative); Leukocyte Esterase Urine Moderate (2+) (Negative); Nitrite Urine Negative (Negative); PH 5.5 (5.0-9.0); UMIC TRIGGER UACC YES; Urine Blood Negative (Negative); Urine Ketones Negative (Negative); Urine Protein Negative (Neg-Trace)
[2023-04-24 20:33] VITALS: BP 182/86; PULSE 91; RESP 17; TEMP 37.4; O2SAT 96
[2023-04-24 21:08] LABS: Bacteria Urine 4+ (None Seen); Hyaline Casts Urine 0-2 /LPF (0-2); RBC Urine 0-2 /HPF (0-2); Squamous Epithelial Cell Urine 0-2 /HPF (0-2); UACC Culture Trigger YES; WBC Urine 21-50 /HPF (0-5)
== END 2023-04-24 21:22 | disposition home or self-care (01) ==
PROVIDERS: Nurse Practitioner Family; Emergency Provider Emergency Medicine; PCP Internal Medicine
DX: N39.0 Urinary tract infection, site not specified (principal); K64.4 Residual hemorrhoidal skin tags; N93.9 Abnormal uterine and vaginal bleeding, unspecified
CPT/HCPCS: 36415; 80048; 80076; 81001; 85025; 85610; 87086; 87088; 87186; 99283

== ENCOUNTER 2023-06-08 21:26 | Emergency (ER) | payer MEDICARE, SELFPAY ==
[2023-06-08 21:29] VITALS: BP 197/111; PULSE 107; RESP 18; TEMP 37.1; O2SAT 95; BMI 31.2
--- NOTE | 2023-06-08 21:45 | MHC.EDTECH ---
This Tech gave the patient a Urine cup. If at any time she feels the urge to go to go to the rest room and try. after so long if she s unable to urinate, I will re-bladder scan her to check retention.
--- NOTE | 2023-06-08 23:24 | ED_ITS ---
HPI - Female Genitourinary General Chief complaint: Urogenital-Female Stated complaint: Unable to void after hernia surg this AM Time Seen by Provider: 06/08/23 23:24 Source: patient Mode of arrival: ambulatory Limitations: no limitations History of Present Illness HPI Narrative: Patient with history of urinary incontinence in the past never had any history of urine retention had bilateral inguinal hernia surgery earlier today after surgery 16:00 patient could not urinate phase bladder full bladder scan at time of triage showed urine more than 470 CC Related Data Home Medications Medication Instructions Recorded Confirmed trazodone 50 mg tablet 50 mg PO BEDTIME PRN 05/31/20 04/23/23 Previous Rx's Medication Instructions Recorded hydroxyzine pamoate 25 mg capsule 25 mg PO QID PRN itching #60 caps 08/03/22 levothyroxine 75 mcg tablet 75 mcg PO DAILY #90 tabs 08/12/22 azithromycin 250 mg tablet See Rx Instructions PO .COMPLEX #6 09/17/22 tabs ibuprofen 800 mg tablet 800 mg PO Q8H PRN pain 30 days #90 09/17/22 tabs fluoxetine 10 mg capsule 10 mg PO DAILY #90 caps 04/12/23 hydrochlorothiazide 25 mg tablet 12.5 mg (1/2 x 25 mg) PO DAILY #90 04/23/23 tabs cefdinir 300 mg capsule 300 mg PO BID 7 days #14 caps 04/24/23 Allergies Allergy/AdvReac Type Severity Reaction Status Date / Time codeine [CODEINE] Allergy Unknown TACHYCARDIA Verified 06/08/23 21:34 Review of Systems Review of Systems: Yes all other systems are reviewed and are negative [facility] Past Medical History Medical History Obesity Physical exam Preop exam for internal medicine Surgical History History of hysterectomy History of bunionectomy History of appendectomy History of cholecystectomy Family History Family History Father Heart disease Mother No problems noted. 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 Oriented X3. No acute distress. Neck: Normal inspection. Neck supple. CVS: Normal heart rate and rhythm. Pulses normal. Respiratory: No respiratory distress. Equal air entry bilateral, no wheezi ng/rales/rhonchi Abdomen: Soft and nontender. Bowel sounds are present, suprapubic fullness+, no CVA tenderness Skin: Skin warm and dry. Normal skin color. Normal skin turgor. Extremities: No lower extremity edema. No calf tenderness Neuro: Oriented X 3. No motor deficit. Medical Decision Making Medical Decision Making [facility] Narrative: Gottlieb catheter was placed by RN for 1000 cc of urine drained patient felt much better UA negative for infection Lab Data [facility] Lab Attestation statement: I reviewed the patient's lab results. Labs: Lab Results 06/09/23 Range/Units 00:07 Urine Color Yellow Urine Appearance Clear Urine pH 6.5 (5.0-9.0) Ur Specific [place] 1.015 (1.005-1.025) Urine Protein Negative (Neg-Trace) mg/dL Urine Glucose (UA) Negative (Negative) mg/dL Urine Ketones Trace (Negative) mg/dL Urine Blood Negative (Negative) Urine Nitrite Negative (Negative) Ur Leukocyte Esterase Negative (Negative) Urine RBC 0-2 (0-2) /HPF Urine WBC 0-5 (0-5) /HPF Ur Squamous Epith Cells 0-2 (0-2) /HPF Urine Bacteria None Seen (None Seen) Hyaline Casts 3-5 (0-2) /LPF Discharge Plan Discharge Clinical Impression: Acute urinary retention Patient Disposition: Home, Self-Care Instructions: Gottlieb Catheter Placement and Care (ED), Acute Urinary Retention in Women (ED) Additional Instructions: Care of Gottlieb catheter and advise Follow-up with PCP in 2-3 days Prescriptions: No Action hydroxyzine pamoate 25 mg capsule 25 mg PO QID PRN (Reason: itching) Qty: 60 3RF levothyroxine 75 mcg tablet 75 mcg PO DAILY Qty: 90 8RF ibuprofen 800 mg tablet 800 mg PO Q8H PRN (Reason: pain) 30 Days Qty: 90 3RF azithromycin 250 mg tablet See Rx Instructions PO .COMPLEX Qty: 6 0RF Rx Instructions: take 500 mg today (day 1), then 250 mg for 4 days (days 2-5) PO fluoxetine 10 mg capsule 10 mg PO DAILY Qty: 90 8RF cefdinir 300 mg capsule 300 mg PO BID 7 Days Qty: 14 0RF trazodone 50 mg tablet 50 mg PO BEDTIME PRN hydrochlorothiazide 25 mg tablet 12.5 mg PO DAILY Qty: 90 8RF
[2023-06-08 23:50] VITALS: BP 146/70; PULSE 95; RESP 18; O2SAT 93
[2023-06-09 00:16] LABS: Appearance Urine Clear; Color Urine Yellow; Glucose Urine UA Negative (Negative); Leukocyte Esterase Urine Negative (Negative); Nitrite Urine Negative (Negative); PH 6.5 (5.0-9.0); Specific Gravity - Urine 1.015 (1.005-1.025); Urine Blood Negative (Negative); Urine Ketones Trace mg/dL (Negative); Urine Protein Negative (Neg-Trace)
--- NOTE | 2023-06-09 00:16 | PC.NURSE ---
Pt primarily american speaking, daughter at bedside interpreting. Daughter reports Pt went for procedure this AM and D/C from previous hospital and unable to void since. Pt states a lot of pressure. 16F Gottlieb cath placed, drained 800 mL of clear urine, pt tolerated well. Urine collected and sent to lab. Gottlieb cath teaching done, Pt switched over to leg bag.
[2023-06-09 00:21] LABS: Bacteria Urine None Seen (None Seen); RBC Urine 0-2 /HPF (0-2); Squamous Epithelial Cell Urine 0-2 /HPF (0-2); WBC Urine 0-5 /HPF (0-5)
== END 2023-06-09 00:52 | disposition home or self-care (01) ==
PROVIDERS: Emergency Provider Internal Medicine; PCP Internal Medicine
DX: R33.9 Retention of urine, unspecified (principal); I10 Essential (primary) hypertension; Z79.899 Other long term (current) drug therapy
CPT/HCPCS: 51702; 51798; 81001; 99283; 99285

== ENCOUNTER 2023-08-13 11:40 | Outpatient (REF) | payer MEDICARE, SELFPAY | END 2023-08-13 11:41 | disposition home or self-care (01) | LOC: HO.MAMMO 11:40 | PROVIDERS: Visit Provider Internal Medicine | DX: Z12.31 Encounter for screening mammogram for malignant neoplasm of breast (principal) | CPT/HCPCS: 77063; 77067 ==

== ENCOUNTER → 2023-08-13 12:30 | Outpatient (BNV) | payer MEDICARE, SELFPAY | PROVIDERS: Visit Provider Radiology Diagnostic Radiology | DX: Z12.31 Encounter for screening mammogram for malignant neoplasm of breast (principal) | CPT/HCPCS: 77063; 77067 ==

== ENCOUNTER 2023-11-10 10:38 | Outpatient (AMB) | payer MEDICARE, SELFPAY ==
[2023-11-10 10:51] VITALS: BP 118/60; PULSE 70; O2SAT 98; BMI 31.0
--- NOTE | 2023-11-10 10:51 | A.OFFPC_ITS ---
Vital Signs 11/10/23 10:51 Height 5 ft 1 in Weight 164 lb 4 oz BMI 31.0 BP 118/60 Blood Pressure Location Lt brachial Position Sitting Pulse 70 Pulse Source Pulse Oximeter Pulse Oximetry (%) 98 Oxygen Delivery Method Room Air Intake Visit Reasons: Pre-op Surgery on December 08 Bridge Contractor Required: No Social Work Coordinator: Present Accompanied by: Daughter Allergies codeine [CODEINE] Allergy (Unknown, Verified 11/10/23 10:53) TACHYCARDIA Medication List - Last Reconciled 11/10/23 by Sean Fish MD azithromycin take 500 mg today (day 1), then 250 mg for 4 days (days 2-5) PO fluoxetine 10 mg PO DAILY hydrochlorothiazide 12.5 mg (1/2 x 25 mg) PO DAILY hydrochlorothiazide 25 mg PO DAILY hydroxyzine pamoate 25 mg PO QID PRN ibuprofen 800 mg PO Q8H PRN 30 days levothyroxine 75 mcg PO DAILY trazodone 50 mg PO BEDTIME PRN Tobacco use date assessed: 11/10/23 Fall risk assessment: No Falls in past year Last assessed Fall Risk: 11/10/23 Dental Screening Dental Screen Date: 11/10/23 Did you have a dental visit in the last 12 months?: No Did you have a dental problem in the last 6 months where you did not have access to dental care?: No Was dental information given to patient?: Patient has dentist HPI Pre-op Surgery on December 08 HPI Details having bilat cataract repairs; has depression hypothyroidism and hypertension, well controlled; no history of CAD PFSH Medical History Obesity Physical exam Preop exam for internal medicine Surgical History History of hysterectomy History of bunionectomy History of appendectomy History of cholecystectomy Family History Father Heart disease Mother No problems noted. 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 1. Little interest or pleasure in doing things: not at all 2. Feeling down, depressed, or hopeless: not at all 3. Trouble falling or staying asleep, or sleeping too much: not at all 4. Feeling tired or having little energy: not at all 5. Poor appetite or overeating: not at all 6. Feeling bad about yourself - or that you are a failure or have let yourself or your family down: not at all 7. Trouble concentrating on things, such as reading the newspaper or watching television: not at all 8. Moving or speaking so slowly that other people could have noticed. Or the opposite - being so fidgety or restless that you have been moving around a lot more than usual: not at all 9. Thoughts that you would be better off or of hurting yourself in some way: not at all Total score: 0 Depression Screening Interpretation: Negative Depression Screening Done: Yes 31313 - PHQ-9 Billing: Yes Source: Developed by Drs. Efra Muro, Gabby Montano, Ciaran Rodriguez and colleagues, with an educational petros from [employer] Thrive Questionnaire Date Thrive assessed: 11/10/23 I am a: Patient What is your living situation today?: I have a steady place to live Within the past 12 months, did the food you bought not last and you didn't have the money to get more?: Never true Within the past 12 months, did you worry whether your food would run out before you got money to buy more?: Never true Do you have trouble paying for medicines?: No Do you have trouble getting transportation to medical appointments?: No Do you have trouble paying your heating and electricity bill?: No Do you have trouble taking care of your child, family member or friend?: No Do you have trouble with day-to-day activities such as bathing, preparing meals, shopping, managing finances, etc.?: No Are you currently unemployed and looking for a job?: No Are you interested in more education?: No Please select the resources that you would like help with: None THRIVE Score: 0 AUDIT C Alcohol Use Questionnaire (AUDIT-C) 1. How often do you have a drink containing alcohol?: Never Total Score: 0 Score Reviewed/Action Taken: Yes JEFF-7 AMB Questionnaire JEFF-7 Date JEFF - 7 assessed: 11/10/23 Feeling nervous, anxious, or on edge: 0 = Not at all Not being able to stop or control worryin = Not at all Worrying too much about different things: 0 = Not at all Trouble relaxin = Not at all Being so restless that it is hard to sit still: 0 = Not at all Becoming easily annoyed or irritable: 0 = Not at all Feeling afraid as if something awful might happen: 0 = Not at all Total JEFF-7 score (0-4 normal; 5-9 mild; 10-14 moderate; 15-21 severe): 0 Source: Developed by Drs. Efra Muro, Gabby Montano, Ciaran Rodriguez and colleagues, with an educational petros from [employer]. Review of Systems Const Denies chills, Denies fatigue, Denies headache(s) and Denies weight loss Eyes Denies change in vision, Denies diplopia and Denies eye pain ENT Denies vertigo, Denies dizziness, Denies headache(s) and Denies nasal discharge Card Denies chest pain, Denies rapid heart rate and Denies dyspnea on exertion Resp Denies chest congestion, Denies cough, Denies pain with cough and Denies dyspnea on exertion GI Denies abdominal pain, Denies hematochezia and Denies change in bowel habits Musc Denies myalgias, Denies arthralgias and Denies joint swelling Skin/Breast Denies lesions and Denies unusual bruising Neuro Denies vertigo, Denies dizziness, Denies headache(s) and Denies focal weakness Endo Denies fatigue Physical exam (Primary Care) Vital Signs: Last Vital Signs Pulse 70 11/10/23 10:51 BP 118/60 11/10/23 10:51 Pulse Ox 98 11/10/23 10:51 Oxygen Delivery Method Room Air 11/10/23 10:51 BMI result Body Mass Index 31.0 Tobacco/Smoking Status: Tobacco use Status Tobacco use date assessed 11/10/23 11/10/23 10:54 Patient Tobacco Use Status Never used Tobacco 11/10/23 10:54 e-Cigarette/Vaping Use Never Used 11/10/23 10:54 PHQ-9: PHQ-9 Score PHQ-9: Total score 0 11/10/23 10:54 Depression Screening Interpretation: Negative Thrive Assessment: Date of Thrive Assessment Date Thrive assessed 11/10/23 11/10/23 10:54 Const General: cooperative, healthy appearing and no acute distress Orientation/consciousness: oriented to person, oriented to place and oriented to time HENMT Head: Yes normal to inspection, Yes normocephalic and Yes atraumatic Mouth: Normal oral and palatal mucosa present and tongue normal Throat: Yes posterior oropharynx normal and Yes uvula midline Eyes General: appearance normal, both eyes and all related structures Neck Neck: Yes normal visual inspection, Yes full ROM and Yes no lymphadenopathy Thyroid: Thyroid normal Carotids: normal carotid upstroke Chest Chest palpation & inspection: normal inspection of the chest Resp Effort & Inspection: normal respiratory effort and able to speak in complete sentences Auscultation: clear to auscultation bilaterally Cardio Jugular venous distension: no JVD Palpation: normal PMI Rate: regular rate Rhythm: regular rhythm Heart sounds: S1 normal heart sound present and S2 normal heart sound present GI Inspection: Yes normal to inspection Palpation (GI): Soft to palpation and No hepatosplenomegaly present Auscultation: normal bowel sounds General: Yes no CVA tenderness Back/Spine/Pelvis Back: no CVA tenderness Skin General skin exam: no rashes or lesions noted Neuro General: oriented to person, oriented to place and oriented to time Extrem General: Yes normal to inspection and Yes full ROM Assessment and Plan Assessment & Plan (1) Pre-op evaluation: Code(s): Z01.818 - Encounter for other preprocedural examination Plan: low risk of cardiovascular complications; cleared for surgery (2) Hypertension: Code(s): I10 - Essential (primary) hypertension Plan: stable; same rx (3) Depression: Code(s): F32.A - Depression, unspecified Plan: stable; same rx (4) Hypothyroidism: Code(s): E03.9 - Hypothyroidism, unspecified Plan: stable; same rx Coding Level of Care Code Tele Est Pt Level 4 (56412) Diagnoses Pre-op evaluation Z01.818 Hypertension I10 Depression F32.A Hypothyroidism E03.9
== END 2023-11-10 12:54 | disposition home or self-care (01) ==
PROVIDERS: Visit Provider Internal Medicine
DX: Z01.818 Encounter for other preprocedural examination (principal); H26.9 Unspecified cataract; I10 Essential (primary) hypertension; E03.9 Hypothyroidism, unspecified
CPT/HCPCS: 99214

== ENCOUNTER 2024-06-19 15:38 | Outpatient (REF) | payer MEDICARE, SELFPAY ==
[2024-06-19 15:52] LABS: MANUAL DIFF FLAG NO
[2024-06-19 16:53] LABS: Basophils Absolute Auto 0.1 X10*3/uL (0.0-0.2); Basophils Percent Auto 0.6 % (0-2); Eosinophils Absolute Auto 0.1 X10*3/uL (0.0-0.4); Eosinophils Percent Auto 1.5 % (0-4); Hematocrit 41.4 % (37.0-47.0); Hemoglobin 13.9 g/dl (12.0-16.0); Imm Gran Abs Auto 0.02 X10*3/uL (0.00-0.03); Imm Gran Pct Auto 0.2 % (0.0-0.4); Lymphocytes Absolute Auto 2.2 X10*3/uL (1.2-4.9); Lymphocytes Percent Auto 26.2 % (20-40); Mean Corpuscular HGB Conc 33.6 g/dl (31.0-35.0); Mean Corpuscular Hemoglobin 28.9 pg (27.0-33.0); Mean Corpuscular Volume 86.1 fL (80.0-98.0); Mean Platelet Volume 10.5 fL (9.4-12.3); Monocytes Absolute Auto 0.6 X10*3/uL (0.1-1.2); Neutrophils Absolute Auto 5.3 x10*3/uL (2.0-8.3); Neutrophils Percent Auto 64.5 % (45-73); Platelet Count 223 X10*3/uL (160-400); Red Blood Count 4.81 X10*6/uL (4.20-5.50); White Blood Count 8.2 X10*3/uL (4.8-10.8)
[2024-06-19 17:44] LABS: Alanine Aminotransferase 15 U/L (0-31); Albumin Level 4.4 g/dL (3.5-5.0); Alkaline Phosphatase 74 U/L (39-117); Anion Gap 12 (12-20); Aspartate Amino Transferase 25 U/L (5-31); Bilirubin Total 0.6 mg/dL (0.0-1.0); Blood Urea Nitrogen 16 mg/dL (9-16); Calcium 9.3 mg/dL (8.4-10.2); Carbon Dioxide 28 mmol/L (22-29); Chloride 103 mmol/L (96-108); Estimated Glomerular Filt Rate > 60; Glucose Fasting 85 mg/dL (60-99); Potassium 3.3 mmol/L (3.3-5.1); Sodium 140 mmol/L (135-145); Total Protein 7.6 g/dL (6.5-8.0)
[2024-06-19 17:59] LABS: Thyroid Stimulating Hormone 1.41 uIU/mL (0.32-4.0)
== END 2024-06-19 15:39 | disposition home or self-care (01) ==
LOC: HO.LAB 15:38
PROVIDERS: PCP Internal Medicine; Visit Provider Internal Medicine
DX: Z13.29 Encounter for screening for other suspected endocrine disorder (principal); Z13.9 Encounter for screening, unspecified; Z13.0 Encounter for screening for diseases of the blood and blood-forming organs and certain disorders involving the immune mechanism
CPT/HCPCS: 36415; 80053; 84443; 85025

== ENCOUNTER 2024-06-22 09:02 | Outpatient (AMB) | payer MEDICARE, SELFPAY ==
[2024-06-22 09:18] VITALS: BP 140/78; PULSE 70; O2SAT 97; BMI 30.6
--- NOTE | 2024-06-22 09:18 | A.OFFPC_ITS ---
Vital Signs 06/22/24 09:18 Height 5 ft 1 in Weight 162 lb BMI 30.6 BP 140/78 H Blood Pressure Location Lt brachial Position Sitting Pulse 70 Pulse Source Pulse Oximeter Pulse Oximetry (%) 97 Oxygen Delivery Method Room Air Intake Visit Reasons: annual exam Manager Oncology Required: No Accompanied by: Self / Same As Patient Allergies codeine [CODEINE] Allergy (Unknown, Verified 06/22/24 09:19) TACHYCARDIA Medication List - Last Reconciled 06/22/24 by Sean Fish MD fluoxetine 10 mg PO DAILY hydrochlorothiazide 12.5 mg (1/2 x 25 mg) PO DAILY hydrochlorothiazide 25 mg PO DAILY hydroxyzine pamoate 25 mg PO QID PRN ibuprofen 800 mg PO Q8H PRN 30 days levothyroxine 75 mcg PO DAILY trazodone 50 mg PO BEDTIME PRN Tobacco use date assessed: 06/22/24 Fall risk assessment: No Falls in past year Last assessed Fall Risk: 06/22/24 Dental Screening Dental Screen Date: 11/10/23 HPI annual exam HPI Details hypertension and hypothyroidism on rx; doing well and compliant [facility] [place] Medical History (Updated 06/22/24 @ 09:48 by Sean Fish MD) Physical exam Obesity Preop exam for internal medicine Surgical History History of hysterectomy History of bunionectomy History of appendectomy History of cholecystectomy Family History Father Heart disease Mother No problems noted. 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 1. Little interest or pleasure in doing things: not at all 2. Feeling down, depressed, or hopeless: not at all 3. Trouble falling or staying asleep, or sleeping too much: more than half the days 4. Feeling tired or having little energy: not at all 5. Poor appetite or overeating: several days 6. Feeling bad about yourself - or that you are a failure or have let yourself or your family down: not at all Source: Developed by Drs. Efra Muro, Gabby Montano, Ciaran Rodriguez and colleagues, with an educational petros from [employer]. Thrive Questionnaire Date Thrive assessed: 11/10/23 I am a: Patient What is your living situation today?: I have a steady place to live Within the past 12 months, did the food you bought not last and you didn't have the money to get more?: Sometimes True Within the past 12 months, did you worry whether your food would run out before you got money to buy more?: Sometimes True Do you have trouble paying for medicines?: No Do you have trouble getting transportation to medical appointments?: No Do you have trouble paying your heating and electricity bill?: Yes Do you have trouble taking care of your child, family member or friend?: No Do you have trouble with day-to-day activities such as bathing, preparing meals, shopping, managing finances, etc.?: I choose not to answer this question Are you currently unemployed and looking for a job?: I choose not to answer this question Are you interested in more education?: I choose not to answer this question Please select the resources that you would like help with: Food Currently or been in a relationship where the following occur: I choose not to answer THRIVE Score: 3 AUDIT C Alcohol Use Questionnaire (AUDIT-C) 1. How often do you have a drink containing alcohol?: Monthly or less 2. How many drinks containing alcohol do you have on a typical day when you are drinking?: 1 or 2 3. How often do you have six or more drinks on one occasion?: Never Total Score: 1 JEFF-7 AMB Questionnaire JEFF-7 Date JEFF - 7 assessed: 11/10/23 Feeling nervous, anxious, or on edge: 0 = Not at all Not being able to stop or control worryin = Not at all Worrying too much about different things: 0 = Not at all Trouble relaxin = Not at all Being so restless that it is hard to sit still: 0 = Not at all Becoming easily annoyed or irritable: 0 = Not at all Feeling afraid as if something awful might happen: 0 = Not at all Total JEFF-7 score (0-4 normal; 5-9 mild; 10-14 moderate; 15-21 severe): 0 Source: Developed by Drs. Efra Muro, Gabby Montano, Ciaran Rodriguez and colleagues, with an educational petros from [employer]. Review of Systems Const Denies chills, Denies fatigue, Denies headache(s) and Denies weight loss Eyes Denies change in vision, Denies diplopia and Denies eye pain ENT Denies vertigo, Denies dizziness, Denies headache(s) and Denies nasal discharge Card Denies chest pain, Denies rapid heart rate and Denies dyspnea on exertion Resp Denies chest congestion, Denies cough, Denies pain with cough and Denies dyspnea on exertion GI Denies abdominal pain, Denies hematochezia and Denies change in bowel habits Musc Denies myalgias, Denies arthralgias and Denies joint swelling Skin/Breast Denies lesions and Denies unusual bruising Neuro Denies vertigo, Denies dizziness, Denies headache(s) and Denies focal weakness Endo Denies fatigue Physical exam (Primary Care) Vital Signs: Last Vital Signs Pulse 70 06/22/24 09:18 BP 140/78 H 06/22/24 09:18 Pulse Ox 97 06/22/24 09:18 Oxygen Delivery Method Room Air 06/22/24 09:18 BMI result Body Mass Index 30.6 Tobacco/Smoking Status: Tobacco use Status Tobacco use date assessed 06/22/24 06/22/24 09:23 Patient Tobacco Use Status Never used Tobacco 06/22/24 09:23 Tobacco use type Cigarette 06/22/24 09:23 e-Cigarette/Vaping Use Never Used 06/22/24 09:23 Thrive Assessment: Date of Thrive Assessment Date Thrive assessed 11/10/23 06/22/24 09:23 Currently or been in a relationship where the following occur: I choose not to answer Const General: cooperative, healthy appearing and no acute distress Orientation/consciousness: oriented to person, oriented to place and oriented to time HENMT Head: Yes normal to inspection, Yes normocephalic and Yes atraumatic Mouth: Normal oral and palatal mucosa present and tongue normal Throat: Yes posterior oropharynx normal and Yes uvula midline Eyes General: appearance normal, both eyes and all related structures Neck Neck: Yes normal visual inspection, Yes full ROM and Yes no lymphadenopathy Thyroid: Thyroid normal Carotids: normal carotid upstroke Chest Chest palpation & inspection: normal inspection of the chest Resp Effort & Inspection: normal respiratory effort and able to speak in complete sentences Auscultation: clear to auscultation bilaterally Cardio Jugular venous distension: no JVD Palpation: normal PMI Rate: regular rate Rhythm: regular rhythm Heart sounds: S1 normal heart sound present and S2 normal heart sound present GI Inspection: Yes normal to inspection Palpation (GI): Soft to palpation and No hepatosplenomegaly present Auscultation: normal bowel sounds General: Yes no CVA tenderness Back/Spine/Pelvis Back: no CVA tenderness Skin General skin exam: no rashes or lesions noted Neuro General: oriented to person, oriented to place and oriented to time Extrem General: Yes normal to inspection and Yes full ROM Coding Level of Care Code Est Pt Prev Care >65y(44607) Diagnoses Hypertension I10 Physical exam Z00.00 Hypothyroidism E03.9 Assessment & Plan Assessment & Plan (1) Hypertension: Code(s): I10 - Essential (primary) hypertension Category: Medical Plan: stable; same rx (2) Physical exam: Code(s): Z00.00 - Encounter for general adult medical examination without abnormal findings Category: Medical Plan: stable (3) Hypothyroidism: Code(s): E03.9 - Hypothyroidism, unspecified Category: Medical Plan: stable; same rx
== END 2024-06-22 12:35 | disposition home or self-care (01) ==
PROVIDERS: Visit Provider Internal Medicine
DX: I10 Essential (primary) hypertension (principal); Z00.00 Encounter for general adult medical examination without abnormal findings; E03.9 Hypothyroidism, unspecified

== ENCOUNTER → 2024-06-22 09:02 | Outpatient (BNVA) | payer MEDICARE, SELFPAY | PROVIDERS: Visit Provider Internal Medicine | DX: Z00.00 Encounter for general adult medical examination without abnormal findings (principal); I10 Essential (primary) hypertension; E03.9 Hypothyroidism, unspecified | CPT/HCPCS: 99397 ==

== ENCOUNTER 2024-08-18 11:41 | Outpatient (REF) | payer MEDICARE, SELFPAY | END 2024-08-18 11:42 | disposition home or self-care (01) | LOC: HO.MAMMO 11:41 | PROVIDERS: PCP Internal Medicine; Visit Provider Internal Medicine | DX: Z12.31 Encounter for screening mammogram for malignant neoplasm of breast (principal) ==

== ENCOUNTER → 2024-08-18 12:15 | Outpatient (BNV) | payer MEDICARE, SELFPAY | PROVIDERS: PCP Internal Medicine; Visit Provider Internal Medicine | DX: Z12.31 Encounter for screening mammogram for malignant neoplasm of breast (principal) | CPT/HCPCS: 77063; 77067 ==

== ENCOUNTER 2024-08-28 10:11 | Outpatient (AMB) | payer MEDICARE, SELFPAY ==
--- NOTE | 2024-08-28 10:14 | A.OFFPC_ITS ---
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 Enrollment Advisor Required: No Jackhammer Splitter Operator: Present Accompanied by: Daughter Allergies codeine [CODEINE] Allergy (Unknown, Verified 08/28/24 10:15) TACHYCARDIA Medication List - Last Reconciled 08/29/24 by Sean Fish MD fluoxetine 10 mg PO DAILY hydrochlorothiazide 12.5 mg (1/2 x 25 mg) PO DAILY hydroxyzine pamoate 25 mg PO QID PRN ibuprofen 800 mg PO Q8H PRN 30 days levothyroxine 75 mcg PO DAILY zolpidem (Ambien) 5 mg PO BEDTIME PRN Tobacco use date assessed: 08/28/24 Fall risk assessment: No Falls in past year Last assessed Fall Risk: 08/28/24 Dental Screening Dental Screen Date: 08/28/24 Did you have a dental visit in the last 12 months?: No Did you have a dental problem in the last 6 months where you did not have access to dental care?: No Was dental information given to patient?: No (dentures) HPI Facial paralicis HPI Details concern of a cva with lip droop and puckering PFSH Medical History (Updated 06/22/24 @ 09:48 by Sean Fish MD) Physical exam Obesity Preop exam for internal medicine Surgical History History of hysterectomy History of bunionectomy History of appendectomy History of cholecystectomy Family History Father Heart disease Mother No problems noted. 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 1. Little interest or pleasure in doing things: not at all 2. Feeling down, depressed, or hopeless: not at all 3. Trouble falling or staying asleep, or sleeping too much: not at all 4. Feeling tired or having little energy: not at all 5. Poor appetite or overeating: not at all 6. Feeling bad about yourself - or that you are a failure or have let yourself or your family down: not at all 7. Trouble concentrating on things, such as reading the newspaper or watching television: not at all 8. Moving or speaking so slowly that other people could have noticed. Or the opposite - being so fidgety or restless that you have been moving around a lot more than usual: not at all 9. Thoughts that you would be better off or of hurting yourself in some way: not at all Total score: 0 Depression Screening Interpretation: Negative Depression Screening Done: Yes Source: Developed by Drs. Efra Muro, Gabby Montano, Ciaran Rodriguez and colleagues, with an educational petros from [employer]. Thrive Questionnaire Date Thrive assessed: 08/28/24 AUDIT C Alcohol Use Questionnaire (AUDIT-C) 1. How often do you have a drink containing alcohol?: Monthly or less 2. How many drinks containing alcohol do you have on a typical day when you are drinking?: 1 or 2 Total Score: 1 JEFF-7 AMB Questionnaire JEFF-7 Date JEFF - 7 assessed: 08/28/24 Feeling nervous, anxious, or on edge: 0 = Not at all Not being able to stop or control worryin = Not at all Worrying too much about different things: 0 = Not at all Trouble relaxin = Not at all Being so restless that it is hard to sit still: 0 = Not at all Becoming easily annoyed or irritable: 0 = Not at all Feeling afraid as if something awful might happen: 0 = Not at all Total JEFF-7 score (0-4 normal; 5-9 mild; 10-14 moderate; 15-21 severe): 0 Source: Developed by Gabby Cortes, Ciaran Rodriguez and colleagues, with an educational petros from [employer]. Review of Systems Const Denies chills, Denies headache(s) and Denies weight loss ENT Denies headache(s) Card Denies chest pain, Denies syncope, Denies irregular heart rhythm and Denies dyspnea Resp Denies chest congestion, Denies cough and Denies dyspnea GI Denies abdominal pain, Denies change in stool character, Denies nausea and Denies vomiting Musc Denies deformity and Denies joint swelling Neuro Denies syncope and Denies headache(s) Physical exam (Primary Care) Vital Signs: Last Vital Signs Temp 97.1 F 08/28/24 10:15 Pulse 81 08/28/24 10:15 BP 110/78 08/28/24 10:15 Pulse Ox 94 08/28/24 10:15 Oxygen Delivery Method Room Air 08/28/24 10:15 BMI result Body Mass Index 31.4 Tobacco/Smoking Status: Tobacco use Status Tobacco use date assessed 08/28/24 08/28/24 10:19 Patient Tobacco Use Status Never used Tobacco 08/28/24 10:19 Tobacco use type Cigarette 08/28/24 10:19 e-Cigarette/Vaping Use Never Used 08/28/24 10:19 PHQ-9: PHQ-9 Score PHQ-9: Total score 0 08/28/24 10:19 Depression Screening Interpretation: Negative Thrive Assessment: Date of Thrive Assessment Date Thrive assessed 08/28/24 08/28/24 10:19 Const General: cooperative, comfortable, no acute distress and alert Neck Neck: Yes no lymphadenopathy Thyroid: Thyroid normal Resp Effort & Inspection: normal respiratory effort Auscultation: clear to auscultation bilaterally Percussion: percussion normal Cardio Jugular venous distension: no JVD Palpation: normal PMI Rate: regular rate Rhythm: regular rhythm Heart sounds: S1 normal heart sound present and S2 normal heart sound present GI Inspection: Yes normal to inspection Palpation (GI): No hepatosplenomegaly present Skin General skin exam: no rashes or lesions noted Extrem General: Yes no clubbing, cyanosis or edema Coding Level of Care Code Est Pt Level 3 (08922) Diagnoses Facial droop R29.810 Assessment & Plan Assessment & Plan (1) Facial droop: Code(s): R29.810 - Facial weakness Plan: ct ordered Orders: Orders CT head/brain wo IV con Today R29.810 - Facial weakness
[2024-08-28 10:15] VITALS: BP 110/78; PULSE 81; TEMP 36.2; O2SAT 94; BMI 31.4
== END 2024-08-28 13:26 | disposition home or self-care (01) ==
PROVIDERS: PCP Internal Medicine; Visit Provider Internal Medicine
DX: R29.810 Facial weakness (principal)

== ENCOUNTER → 2024-08-28 10:11 | Outpatient (BNVA) | payer MEDICARE, SELFPAY | PROVIDERS: PCP Internal Medicine; Visit Provider Internal Medicine | DX: R29.810 Facial weakness (principal) | CPT/HCPCS: 99212 ==

== ENCOUNTER 2024-09-26 16:38 | Outpatient (REF) | payer MEDICARE, SELFPAY ==
--- NOTE | ~2024-09-26 | CT_ITS ---
EXAMINATION: CT HEAD WITHOUT CONTRAST CLINICAL INFORMATION: R29.810 - Facial weakness COMPARISON: December 22, 2016. TECHNIQUE: Contiguous axial imaging was performed from the skull base to vertex without intravenous administration of contrast. This CT examination was performed using dose optimization techniques as appropriate, variously including the following: *Automated exposure control *Adjustment of mA and/or kV according to patient size (this includes techniques or standardized protocols for targeted exams where dose is matched to indication/reason for exam; i.e. extremities or head) *Use of iterative reconstruction technique DLP: 801 mGy-cm FINDINGS: No acute intracranial hemorrhage, mass effect, midline shift, hydrocephalus or herniation. Crocker-white matter differentiation is normal. Bilateral multifocal patchy deep periventricular white matter hypodensities involving centrum semiovale and richards radiata. Old lacunar infarcts in the basal ganglia. There is a 2 cm extra-axial CSF equivalent area in the right frontal convexity and a 2.5 x 4 cm extra-axial, CSF equivalent attenuation in the right frontoparietal/central sulcus without mass effect Sellar/suprasellar region demonstrated intrasellar CSF prominence without gross mass. Craniocervical junction is intact and normal. Degenerative changes in the periodontal C1 region. No air-fluid levels in the included paranasal sinuses. For pneumatization left frontal sinus. Tympanic cavities and mastoid cells are aerated.. CT/CT head/brain wo IV con IMPRESSION: No acute intracranial hemorrhage. Small vessel occlusive disease. Probable simple arachnoid cysts, right frontal parietal and right frontal convexities. Electronically signed by: Shubham Valdovinos MD 09/27/2024 07:50 AM EDT
== END 2024-09-26 16:39 | disposition home or self-care (01) ==
LOC: HO.CT 16:38
PROVIDERS: PCP Internal Medicine; Visit Provider Internal Medicine
DX: R29.810 Facial weakness (principal)
CPT/HCPCS: 70450

== ENCOUNTER → 2024-09-26 16:40 | Outpatient (BNV) | payer MEDICARE, SELFPAY | PROVIDERS: PCP Internal Medicine; Visit Provider Radiology Diagnostic Radiology | DX: I73.9 Peripheral vascular disease, unspecified (principal) | CPT/HCPCS: 70450 ==

== ENCOUNTER 2025-07-02 09:59 | Outpatient (REF) | payer MEDICARE, SELFPAY ==
[2025-07-02 12:03] LABS: MANUAL DIFF FLAG NO
[2025-07-02 12:27] LABS: Hematocrit 41.1 % (37.0-47.0); Hemoglobin 13.6 g/dl (12.0-16.0); Imm Gran Abs Auto 0.06 X10*3/uL (0.00-0.03); Imm Gran Pct Auto 0.8 % (0.0-0.4); Lymphocytes Absolute Auto 2.2 X10*3/uL (1.2-4.9); Mean Corpuscular HGB Conc 33.1 g/dl (31.0-35.0); Mean Corpuscular Hemoglobin 28.8 pg (27.0-33.0); Mean Corpuscular Volume 87.1 fL (80.0-98.0); NRBC Abs Auto 0.000 X10*3/uL (0.0-0.012); NRBC Pct Auto 0.0 /100WBC (0.0-0.2); Platelet Count 189 X10*3/uL (160-400); Red Blood Count 4.72 X10*6/uL (4.20-5.50); White Blood Count 7.1 X10*3/uL (4.8-10.8)
[2025-07-02 13:12] LABS: Appearance Urine Cloudy; Glucose Urine UA Negative (Negative); PH 5.0 (5.0-9.0); Specific Gravity - Urine 1.010 (1.005-1.025); UMIC TRIGGER UACC YES
[2025-07-02 13:22] LABS: UACC Culture Trigger YES
[2025-07-02 13:36] LABS: Alanine Aminotransferase 13 U/L (0-31); Albumin Level 4.5 g/dL (3.5-5.0); Alkaline Phosphatase 72 U/L (39-117); Anion Gap 12 (12-20); Aspartate Amino Transferase 22 U/L (5-31); Blood Urea Nitrogen 12 mg/dL (9-16); Calcium 9.1 mg/dL (8.4-10.2); Carbon Dioxide 24 mmol/L (22-29); Chloride 110 mmol/L (96-108); Cholesterol 204 mg/dL (<200); Estimated Glomerular Filt Rate > 60; HDL Cholesterol 58 mg/dL (>40); Potassium 3.5 mmol/L (3.3-5.1); Sodium 142 mmol/L (135-145); Total Protein 7.0 g/dL (6.5-8.0); Triglycerides 100 mg/dL (<150)
[2025-07-02 14:35] LABS: Folate 6.9 ng/mL (> or = 4.0)
[2025-07-02 14:43] LABS: Vitamin B12 267 pg/mL (200-900)
== END 2025-07-02 10:00 | disposition home or self-care (01) ==
LOC: HO.LAB 09:59
DX: Z00.00 Encounter for general adult medical examination without abnormal findings (principal); E03.9 Hypothyroidism, unspecified; I10 Essential (primary) hypertension; E78.00 Pure hypercholesterolemia, unspecified; G47.10 Hypersomnia, unspecified; F32.A Depression, unspecified; R94.31 Abnormal electrocardiogram [ECG] [EKG]; Z13.0 Encounter for screening for diseases of the blood and blood-forming organs and certain disorders involving the immune mechanism; Z13.29 Encounter for screening for other suspected endocrine disorder; Z13.21 Encounter for screening for nutritional disorder
CPT/HCPCS: 36415; 80053; 80061; 81001; 82306; 82607; 82746; 84443; 85025; 87086

== ENCOUNTER 2025-07-02 09:59 | Outpatient (AMB) | payer MEDICARE, SELFPAY ==
--- NOTE | 2025-07-02 10:19 | MHC.PC.OV ---
Intake Visit Reasons: GOLDEN Fish/DARIO-Initial - see comments Allergies codeine (CODEINE) Allergy (Unknown, Verified 08/28/24 10:15) TACHYCARDIA Tobacco use date assessed: 08/28/24 Dental Screening Dental Screen Date: 08/28/24 [facility] Medical History (Updated 06/22/24 @ 09:48 by Sean Fish MD) Physical exam Obesity Preop exam for internal medicine Surgical History History of hysterectomy History of bunionectomy History of appendectomy History of cholecystectomy Family History Father Heart disease Mother No problems noted. 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 How many drinks containing alcohol do you have on a typical day when you are drinking?: 1 or 2 3. How often do you have six or more drinks on one occasion?: Less than monthly Total Score: 1 JEFF-7 AMB Questionnaire JEFF-7 Date JEFF - 7 assessed: 08/28/24 Source: Developed by Drs. Efra Muro, Gabby Montano, Ciaran Rodriguez and colleagues, with an educational petros from [employer]. Physical exam (Primary Care) Tobacco/Smoking Status: Tobacco use Status Tobacco use date assessed 08/28/24 08/28/24 10:19 Patient Tobacco Use Status Never used Tobacco 08/28/24 10:19 Tobacco use type Cigarette 08/28/24 10:19 e-Cigarette/Vaping Use Never Used 08/28/24 10:19 Thrive Assessment: Date of Thrive Assessment Date Thrive assessed 08/28/24 08/28/24 10:19 Coding
--- NOTE | 2025-07-02 10:19 | AM.OFFVISMDC ---
Intake Vital Signs 07/02/25 10:20 Height 5 ft 1 in Weight 167 lb BMI 31.6 BP 144/80 H Blood Pressure Location Lt brachial Position Sitting Respiration 18 Pulse 78 Pulse Source Pulse Oximeter Temp 98.5 F Temp Source Temporal Artery Scan Pulse Oximetry (%) 96 Oxygen Delivery Method Room Air Intake Visit Reasons: GOLDEN Lainer/AWV-Initial - see comments Biosecurity Officer Required: No Accompanied by: Daughter Allergies codeine (CODEINE) Allergy (Unknown, Verified 07/02/25 10:28) TACHYCARDIA Medication List - Last Reconciled 07/02/25 by Maeve Rogers PA-C aspirin 81 mg PO DAILY estradiol 0.01%(0.1mg/gram) 1 g vaginal 2XW hydrochlorothiazide 12.5 mg PO DAILY levothyroxine 75 mcg PO DAILY vibegron (Gemtesa) 75 mg PO DAILY zolpidem (Ambien) 5 mg PO BEDTIME PRN HPI GOLDEN Lainer/AWV-Initial - see comments HPI Details 69 year old female with past medical history of hypothyroidism, depression, hypertension last seen 08/2024 coming in for AWV/GOLDEN from Dr. Fish.?? Presenting for an annual physical. Her primary concern is lack of sleep, reporting difficulty both falling and staying asleep, which occurs even when taking Ambien. She has been without her Ambien prescription for approximately two months and reports that Trazodone is ineffective for her. She snores and feels tired throughout the day. The patient also reports frequent episodes of dizziness, which then lead to headaches. These episodes occur when she stands from a sitting position and resolve upon sitting back down. She does see Dr. Asencio through [facility]. pap smear: [facility] eye exam: yearly Mammo: 08/2024? Colonoscopy: [facility] vaccines: TD and PCV given today - flu deferred until after the holiday [facility] Medical History Shingles Subacromial bursitis of left shoulder joint Elevated BP without diagnosis of hypertension Physical exam Obesity Preop exam for internal medicine Surgical History History of hysterectomy History of bunionectomy History of appendectomy History of cholecystectomy Family History Father Heart disease Mother No problems noted. 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 Cognitive needs: No Hearing needs: No Vision needs: Yes (glasses) Questionnaire Medicare Wellness Checkup [age] What gender do you identify with?: female During the past 4 weeks, how much have you been bothered by emotional problems such as feeling anxious, depressed, irritable, sad or downhearted, and blue?: not at all During the past 4 weeks, has your physical & emotional health limited your social activities with family, friends, neighbors, or groups?: not at all During the past 4 weeks, how much bodily pain have you generally had?: no pain During the past 4 weeks, was someone available to help you if you needed & wanted help?: yes, as much as I wanted During the past 4 weeks, what was the hardest physical activity you could do for at least 2 minutes?: moderate Can you get to places out of walking distance without help? (For eg., can you travel alone on buses, taxis or drive your car?): Yes Can you go shopping for groceries or clothes without someone's help?: Yes Can you do your housework without help?: Yes Because of any health problems, do you need the help of another person with your personal care needs such as eating, bathing, dressing or getting around the house?: No Can you handle your own money without help?: Yes During the past 4 weeks, how would you rate your health in general?: very good During the past 4 weeks how have things been going for you?: pretty well Are you having difficulties driving your car?: not applicable, I don't use a car Do you always fasten your seat belt when you are in a car?: yes, usually During past 4 weeks, have you been bothered by the following: never: Sexual problems?, Trouble eating well? and Problems using the telephone?, sometimes: Falling or dizzy when standing up and Tiredness or fatigue? and always: Teeth or denture problems? Have you fallen 2 or more times in the past year?: No Are you afraid of falling?: No Are you a smoker?: no During the past 4 weeks, how many drinks of wine, beer, or other alcoholic beverages did you have?: 2-5 drinks per week Do you exercise for about 20 minutes 3 or more times a week?: yes, some of the time Have you been given information to help with the following?: yes: Hazards in your house that might hurt you? and yes: Keeping track of your medications? How often do you have trouble taking medicines the way you have been told to take them?: I always take medicine as prescribed How confident are you that you can control & manage most of your health problems?: somewhat confident What is your race?: White Mini Mental State Exam (MMSE) Orientation What is the (year) (season) (date) (day) (month)?: year, season, date, day and month Where are we (state) (county) (town or city) (hospital) (floor)?: state, county, town or city, hospital/clinic and floor Score Score: 10 Activity of Daily Living Bathing - sponge bath, tub bath or shower: receives no assistance (gets in/out by self, if usual bathing means Dressing - getting clothes from closets & drawers, including inner/outer garments & fasteners.: gets clothes & gets completely dressed without help Toileting - going to the 'toilet room' for urine/bowel elimination & cleaning self/arranging clothes: goes to toilet room, cleans self, arranges clothes without help Transfer: moves in & out of bed and chair without help (may use support object) Continence: controls urination/bowel movements completely by self Feeding: feeds self without help Total Score: 0 Information obtained from: patient Using telephone: independent Traveling: independent Shopping: independent Preparing meals: independent Housework: independent Taking medicine: independent Managing money: independent PHQ-9 Over the last 2 weeks, how often have you been bothered by any of the following problems? 1. Little interest or pleasure in doing things: not at all 2. Feeling down, depressed, or hopeless: not at all 3. Trouble falling or staying asleep, or sleeping too much: nearly every day 4. Feeling tired or having little energy: not at all 5. Poor appetite or overeating: not at all 6. Feeling bad about yourself - or that you are a failure or have let yourself or your family down: not at all 7. Trouble concentrating on things, such as reading the newspaper or watching television: not at all 8. Moving or speaking so slowly that other people could have noticed. Or the opposite - being so fidgety or restless that you have been moving around a lot more than usual: not at all 9. Thoughts that you would be better off or of hurting yourself in some way: not at all Total score: 3 Depression Screening Interpretation: Negative Depression Screening Done: Yes 27949 - PHQ-9 Billing: Yes Source: Developed by Drs. Efra Muro, Gabby Montano, Ciaran Rodriguez and colleagues, with an educational petros from [employer]. JEFF-7 AMB Questionnaire JEFF-7 Date JEFF - 7 assessed: 07/02/25 Feeling nervous, anxious, or on edge: 0 = Not at all Not being able to stop or control worryin = Not at all Worrying too much about different things: 0 = Not at all Trouble relaxin = Not at all Being so restless that it is hard to sit still: 0 = Not at all Becoming easily annoyed or irritable: 0 = Not at all Feeling afraid as if something awful might happen: 0 = Not at all Total JEFF-7 score (0-4 normal; 5-9 mild; 10-14 moderate; 15-21 severe): 0 Source: Developed by Drs. Efra Muro, Gabby Montano, Ciaran Rodriguez and colleagues, with an educational petros from [employer]. JEFF-7 Assessment Billing JEFF-7 Assessment Tool: JEFF-7 Assessment 89265 Thrive Questionnaire Date Thrive assessed: 08/28/24 Review of Systems Const Denies body aches, Denies chills, Denies fever(s), Denies headache(s) and Denies poor appetite Eyes Reports no additional complaints ENT Denies dizziness and Denies headache(s) Card Denies chest pain, Denies syncope, Denies edema, Denies irregular heart rhythm, Denies lightheadedness and Denies dyspnea Resp Denies cough and Denies dyspnea GI Denies abdominal pain, Denies constipation, Denies diarrhea, Denies nausea and Denies vomiting Reports no additional complaints Musc Reports no additional complaints and Denies abnormal gait Skin/Breast Reports system reviewed and no additional complaints, except as documented Neuro Denies abnormal gait, Denies dizziness, Denies syncope and Denies headache(s) Psych Reports no additional complaints Physical Exam Vital Signs: Last Vital Signs Temp 98.5 F 07/02/25 10:20 Pulse 78 07/02/25 10:20 Resp 18 07/02/25 10:20 BP 144/80 H 07/02/25 10:20 Pulse Ox 96 07/02/25 10:20 Oxygen Delivery Method Room Air 07/02/25 10:20 BMI result Body Mass Index 31.6 Const General: cooperative, healthy appearing, comfortable and no acute distress Orientation/consciousness: patient oriented x3 HEENT Head: Yes normocephalic Ears: hearing grossly normal bilaterally General nose exam: Normal external nose present Eyes General: appearance normal, both eyes and all related structures Conjunctivae: conjunctivae normal Neck Neck: Yes full ROM and Yes no lymphadenopathy Resp Effort & Inspection: normal respiratory effort Auscultation: clear to auscultation bilaterally, no crackles, no rales, no rhonchi and no wheezes Cardio Rate: regular rate Rhythm: regular rhythm Skin General skin exam: no rashes or lesions noted Neuro General: patient oriented x3 Gait exam (Neuro): Normal gait present Extrem General: Yes normal to inspection, Yes full ROM and No edema Psych Affect: normal affect Attitude: cooperative Insight: Good insight present (Psych) Judgement: Good judgement present (Psych) Office Procedures EKG Details: EKG reviewed by myself and revealed normal sinus rhythm without evidence of acute ischemia, normal axis she does have Q-waves in lead II and AVF 57368-[id number], Complete Immunizations pneumoc 20-shukri conj-dip cr(PF) 0.5 mL IM syringe Performing Provider: Maeve Rogers PA-C Performing Location: [facility] Administered by: Denise Rodriguez RN on 07/02/25 11:18 Dose Route Admin Location Dispensed Lot Number Expiration Date [facility] [employer] 0.5 mL IM Left Deltoid 0.5 mL [id number] 04/10/27 6496-6691-10 [employer] Total Dispensed Waste 0.5 mL 0 % VIS Given Date VIS Provided VIS Publication Date 07/02/25 Single Vaccine 24 Eligibility Eligibility Date Funding Source Not VFC Eligible 07/02/25 Private Tenivac (PF) 5 Lf unit-2 Lf unit/0.5 mL intramuscular syringe Performing Provider: Maeve Rogers PA-C [facility] Administered by: Denise Rodriguez RN on 07/02/25 11:19 Dose Route Admin Location Dispensed Lot Number Expiration Date [facility] [employer]ic 0.5 mL IM Right Deltoid 0.5 mL [id number] 10/08/26 88562-894-02 [employer] Total Dispensed Waste 0.5 mL 0 % VIS Given Date VIS Provided VIS Publication Date 07/02/25 Single Vaccine 21 Eligibility Eligibility Date Funding Source Not VFC Eligible 07/02/25 Private Assessment & Plan Assessment & Plan (1) Encounter for annual wellness visit (AWV) in Medicare patient: Code(s): Z00.00 - Encounter for general adult medical examination without abnormal findings Plan: [place] of care was reviewed with patient patient was provided with a written screening schedule. Healthcare proxy/ MOLST forms were reviewed with patient and has been previously completed. Patient is up-to-date on all recommended routine screenings and vaccinations for her age. Ordered for updated blood work. EKG was performed in office today and reviewed with the patient today as part of the patient's initial annual wellness visit (2) Depression: Code(s): F32.A - Depression, unspecified Plan: Denies any symptoms of depression or anxiety at this time (3) Hypertension: Code(s): I10 - Essential (primary) hypertension Plan: Continue on current blood pressure medication. Avoid salt intake and encourage healthy diet and regular exercise. Mildly elevated in the office today however patient has not taken blood pressure medication this morning (4) Hypothyroidism: Code(s): E03.9 - Hypothyroidism, unspecified Plan: Ordered for repeat blood work. Continue on levothyroxine 75 mcg (5) Hypersomnolence: Code(s): G47.10 - Hypersomnia, unspecified Plan: Ordered for home sleep study. Refill was sent for Ambien and consider increase of dose to 10 mg if 5 mg is ineffective. (6) Q waves suggestive of previous myocardial infarction: Comment: 06/2025: Lead II and AVf Code(s): R94.31 - Abnormal electrocardiogram [ECG] [EKG] Plan: EKG showing Q-waves in the inferior leads. She will continue on daily aspirin, blood pressure goal less than 130/80, LDL goal less than 70 and closely monitor blood sugars. Denies any previous cardiac events or symptoms Plan This note was constructed using voice recognition software. While every effort has been made to ensure accuracy and program specialist, still areas may have been included sometimes these areas may affect the content or meeting of the given symptoms. Total time spent caring for the patient today was 30 minutes. This includes time spent before the visit reviewing the chart, time spent during the visit, and time spent after the visit and documentation. Patient was informed and verbally consented to the use of an ambient scribe for clinic note documentation during this visit. Orders: Orders TSH reflex Free T4 Today E03.9 - Hypothyroidism, unspecified, Z13.29 - Encounter for screening for other suspected endocrine disorder Comprehensive Met. Panel Today I10 - Essential (primary) hypertension, Z00.00 - Encounter for general adult medical examination without abnormal findings Complete Blood Count Auto Diff Today I10 - Essential (primary) hypertension, Z13.0 - Encounter for screening for diseases of the blood and blood-forming organs and certain disorders involving the immune mechanism Vitamin B12 and Folate Today E03.9 - Hypothyroidism, unspecified, Z13.21 - Encounter for screening for nutritional disorder Vitamin D 25-OH Total Today Z13.21 - Encounter for screening for nutritional disorder Lipid Panel Today E78.00 - Pure hypercholesterolemia, unspecified UA CC w/rflx Micro + Cult Today Z13.9 - Encounter for screening, unspecified XR DEXA axial skeleton Today Z78.0 - Asymptomatic menopausal state RT home sleep study Today G47.10 - Hypersomnia, unspecified AMB EKG-In Office Today Z00.00 - Encounter for general adult medical examination without abnormal findings Pneumococcal 20 Immunization Today Z23 - Encounter for immunization Td Immunization Today Z23 - Encounter for immunization Medications: Refilled levothyroxine 75 mcg PO DAILY 90 tabs 3RF zolpidem (Ambien) 5 mg PO BEDTIME PRN 30 tabs 1RF sleep Quality Reporting (2020) Depression/Bipolar (159/160/161/177) PHQ-9: Total score: 3 Coding Level of Care Code Medicare First (G0438) Diagnoses Encounter for annual wellness visit (AWV) in Medicare patient Z00.00 Depression F32.A Hypertension I10 Hypothyroidism E03.9 Hypersomnolence G47.10 Q waves suggestive of previous myocardial infarction R94.31 CPT Codes Advance Care Planning - Advance Care Planning discussion: On file, no changes ([id number]) EKG - CPT: 90505-Gfnozwltlnemtgicl, Complete ([id number]) Additional Codes JEFF-7 Assessment Billing - JEFF-7 Assessment Tool: JEFF-7 Assessment 57717 ([id number]) PHQ-9 - 64604 - PHQ-9 Billing: Yes ([id number]) Advance Care Planning Advance Care Planning discussion: On file, no changes PHQ-2 Patient Health Questionnaire Over the last 2 weeks, how often have you been bothered by any of the following problems? 1. Little interest or pleasure in doing things: not at all and 2. Feeling down, depressed, or hopeless: not at all Source: Developed by Drs. Efra Muro, Gabby Montano, Ciaran Rodriguez and colleagues, with an educational petros from [email or web address]
[2025-07-02 10:20] VITALS: BP 144/80; PULSE 78; RESP 18; TEMP 36.9; O2SAT 96; BMI 31.6
--- OUTSIDE RECORDS SUMMARY | 2025-07-02 11:57 | XMS_ITS | Patient Health Record ---
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 Problems Problem Type SNOMED Code ICD Code Onset Dates Problem Status W/U Status Risk Notes Problem Screening for malignant neoplasm of colon (028130442) Special screening for malignant neoplasms, colon (V76.51) Active confirmed Plan Of Treatment Future Test Test Name Order Date COLONOSCOPY VIA STOMA CONTROL OF BLEEDIN G ANY METHOD 03/13/2011 Insurance Providers Payer Name Payer Address Payer Phone Subscriber Number Group Number Insured Name Patient Relationship to Insured Coverage Start Date Coverage End Date [facility] [address] [place] [phone] [phone] [id number] LUPE LOPEZ Self - patient is the insured Medical (General) History Medical History History ICD Code Hypertension She dos not know her meds but was advise d to get us a list. Denies RI,DM,CVA,Lung disease,renal dise ase Surgical History Surgery Date(Month/Year) Describes surgery for either a kidney st one or gallstones.
== END 2025-07-02 11:19 | disposition home or self-care (01) ==
LOC: HO.HMCH 10:00
DX: Z00.00 Encounter for general adult medical examination without abnormal findings (principal); F32.9 Major depressive disorder, single episode, unspecified; I10 Essential (primary) hypertension; E03.9 Hypothyroidism, unspecified; G47.10 Hypersomnia, unspecified; R94.31 Abnormal electrocardiogram [ECG] [EKG]; Z23 Encounter for immunization